=== PATIENT | male | born 1960 | race Caucasian/White ===

== ENCOUNTER 2016-07-18 13:02 | Inpatient (IN) | payer MEDICARE, MEDICAID ==
[2016-07-18] VITALS (8 sets, daily range): BP systolic 122–147; BP diastolic 61–70
[~2016-07-18] VITALS: Ht 160 cm; Wt 87.5 kg
[~2016-07-18 13:02] MED LIST: ACET-868 PO; ASPI81TA2 PO; BISA10SU8 RC; BLOO-668 IN; CARV3.122 PO; DIVA250T4 PO; DOCU-270 PO; DOCU250C75 PO; ENZY1TAB5 PO; FOLI1TAB16 PO; INSU100V11 SQ; INSU300I SQ; LEVE250T2 PO; LOSA25TA3 PO; MAGN400O6 PO; METF850T2 PO; NA P133E RC; QUET25TA PO; SENN8.6T6 PO; SIMV10TA6 PO; SPIR25TA PO
[2016-07-18 14:19] LABS: BASOPHILS % (AUTO) 0.5 % (0.0-2.0); DIFF TOTAL % 100 %; EOSINOPHILS # (AUTO) 0.9 /CMM (0.0-0.7); EOSINOPHILS % (AUTO) 10.8 % (0.0-6.0); HEMATOCRIT 25 % (39-51); HEMOGLOBIN 7.3 g/dL (13.5-17.5); LYMPHOCYTES # (AUTO) 1.5 /CMM (0.8-4.8); LYMPHOCYTES % (AUTO) 17.7 % (20.0-44.0); MEAN CORPUSCULAR HEMOGLOBIN 17 PG (26.0-33.0); MEAN CORPUSCULAR HGB CONC 29 g/dl (31.0-36.0); MEAN CORPUSCULAR VOLUME 58 fL (80-96); MONOCYTES # (AUTO) 0.7 /CMM (0.1-1.30); MONOCYTES % (AUTO) 8.1 % (2.0-12.0); NEUTROPHILS # (AUTO) 5.4 /CMM (1.8-8.9); NEUTROPHILS % (AUTO) 62.9 % (43.0-81.0); PLATELET COUNT (AUTO) 251 /CMM (150-450); RED BLOOD CELL COUNT(AUTO) 4.32 MIL/uL (4.5-6.0); WHITE BLOOD COUNT (AUTO) 8.6 K/uL (4.3-11.0)
[2016-07-18 14:25] LABS: INR 1.07 (0.87-1.13); PROTHROMBIN TIME 11.2 SECS (9.5-12.7)
[2016-07-18 14:28] LABS: ALBUMIN 3.6 g/dL (3.4-5.0); BILIRUBIN,DIRECT 0.1 mg/dL (0.0-0.2); BILIRUBIN,TOTAL 0.5 mg/dL (0.2-1.0); CALCIUM, SERUM 8.4 mg/dL (8.5-10.1); CREATININE 1.1 mg/dL (0.6-1.3); INDIRECT BILIRUBIN 0.4 mg/dL (0.0-1.1); POTASSIUM 4.7 mmol/L (3.5-5.1); TOTAL PROTEIN, SERUM 7.1 g/dL (6.4-8.2)
[2016-07-18] MEDS ORDERED: INSULIN REGULAR, HUMAN 100 UNIT/ML 10 ML VIAL ONE (14:55)
[2016-07-18] MEDS ORDERED: INSULIN REGULAR, HUMAN 100 UNIT/ML 10 ML VIAL SQ ONE (15:00)
[2016-07-18 15:20] LABS: LYMPHOCYTES % (MANUAL) 22 % (16-48)
[2016-07-18 15:21] LABS: EOSINOPHILS % (MANUAL) 7 % (0-4)
[2016-07-18] MEDS ORDERED: RANI150T8 PO (15:26)
[2016-07-18] MEDS ORDERED: AMYL1CAP62 PO (15:26)
[2016-07-18] MEDS ORDERED: DIVA250T PO (15:26)
[2016-07-18] MEDS ORDERED: ZOLP5TAB7 PO (15:26)
[2016-07-18] MEDS ORDERED: METF500T4 PO (15:26)
[2016-07-18] MEDS ORDERED: DIVA500T7 PO (15:26)
[2016-07-18] MEDS ORDERED: HYDR-552 PO (15:26)
[2016-07-18] MEDS ORDERED: ONDANSETRON HCL/PF 4 MG/2 ML VIAL IVP PRN (16:00)
[2016-07-18] MEDS ORDERED: MAG HYDROX/AL HYDROX/SIMETH 30 ML UDC PO PRN (16:00)
[2016-07-18] MEDS ORDERED: ZOLPIDEM TARTRATE 5 MG TABLET PO PRN (16:00)
[2016-07-18] MEDS ORDERED: MAGNESIUM HYDROXIDE 30 ML UDC PO PRN (16:00)
[2016-07-18] MEDS ORDERED: HYDROCODONE/APAP 5/325MG 1 EACH TABLET PO PRN (16:00)
[2016-07-18] MEDS ORDERED: Z GUARD REMEDY 2 OZ OINT TP PRN (16:00)
[2016-07-18] MEDS ORDERED: ACETAMINOPHEN 325 MG TABLET PO PRN (16:00)
[2016-07-18] MEDS ORDERED: BLOOD IV SET 1 EA INFUS.SET MC ONE ×2 (17:49→21:23)
[2016-07-18] MEDS ORDERED: IV NS 0.9% 250 ML IV ONE (17:49)
[2016-07-18 17:54] LABS: IRON, SERUM 20 ug/dl (50-175); PERCENT SATURATION 5 % (14-33); TOTAL IRON BINDING CAPACITY 438 ug/dl (250-450)
[2016-07-18] MEDS: AMYLASE/LIPASE/PROTEASE 1 CAP CAPSULE.DR PO SCH (20:03)
[2016-07-18] MEDS: LOSARTAN POTASSIUM 25 MG TABLET PO SCH (20:03)
[2016-07-18] MEDS ORDERED: DEXTROSE 50%-WATER 50 ML DISP.SYRIN IV PRN (20:30)
[2016-07-18] MEDS ORDERED: FUROSEMIDE 20 MG/2 ML VIAL IV ONE (21:00)
[2016-07-18] MEDS: QUETIAPINE FUMARATE 25 MG TABLET PO SCH (21:07)
[2016-07-18] MEDS: DIVALPROEX SODIUM 500 MG TABLET.DR PO SCH (21:07)
[2016-07-18] MEDS: SIMVASTATIN 10 MG TABLET PO SCH (21:07)
[2016-07-18] MEDS: LEVETIRACETAM (250 MG) 250 MG TABLET PO SCH (21:07)
[2016-07-18] MEDS: CARVEDILOL 3.125 MG TABLET PO SCH (21:08)
[2016-07-18] MEDS: BLOOD SUGAR DIAGNOSTIC 1 EACH STRIP VI SCH (21:08)
[2016-07-18] MEDS: *INSULIN REGULAR(HUMULIN R)HUM 100 UNIT/ML VIAL SQ PRN (21:09)
[2016-07-18] MEDS ORDERED: IV SET PRIMARY PUMP SET 1 EA INFUS.SET MC ONE (23:57)
[2016-07-19 00:08] VITALS: BP 139/74
[2016-07-19] MEDS ORDERED: FUROSEMIDE 20 MG/2 ML VIAL ONE (00:11)
[2016-07-19] MEDS: IV NS 0.9% 1,000 ML IV PRN (00:15)
[2016-07-19] MEDS: *INSULIN REGULAR(HUMULIN R)HUM 100 UNIT/ML VIAL SQ PRN ×2 (06:35→21:27)
[2016-07-19] MEDS: BLOOD SUGAR DIAGNOSTIC 1 EACH STRIP VI SCH ×4 (06:35→21:24)
[2016-07-19 07:23] LABS: CALCIUM, SERUM 8.2 mg/dL (8.5-10.1); PHOSPHORUS 3.4 mg/dL (2.5-4.9); POTASSIUM 4.3 mmol/L (3.5-5.1)
[2016-07-19 07:38] LABS: BASOPHILS # (AUTO) 0.1 /CMM (0.0-0.2); BASOPHILS % (AUTO) 0.6 % (0.0-2.0); DIFF TOTAL % 100 %; EOSINOPHILS # (AUTO) 1.1 /CMM (0.0-0.7); EOSINOPHILS % (AUTO) 12.5 % (0.0-6.0); HEMATOCRIT 30 % (39-51); LYMPHOCYTES # (AUTO) 1.5 /CMM (0.8-4.8); LYMPHOCYTES % (AUTO) 16.1 % (20.0-44.0); MEAN CORPUSCULAR HEMOGLOBIN 19 PG (26.0-33.0); MEAN CORPUSCULAR HGB CONC 30 g/dl (31.0-36.0); MEAN CORPUSCULAR VOLUME 62 fL (80-96); MONOCYTES # (AUTO) 0.7 /CMM (0.1-1.30); MONOCYTES % (AUTO) 7.9 % (2.0-12.0); NEUTROPHILS # (AUTO) 5.8 /CMM (1.8-8.9); NEUTROPHILS % (AUTO) 62.9 % (43.0-81.0); PLATELET COUNT (AUTO) 192 /CMM (150-450); RED BLOOD CELL COUNT(AUTO) 4.78 MIL/uL (4.5-6.0); WHITE BLOOD COUNT (AUTO) 9.2 K/uL (4.3-11.0)
[2016-07-19 08:00] VITALS: BP 116/61
[2016-07-19] MEDS: FOLIC ACID 1 MG TABLET PO SCH (08:11)
[2016-07-19] MEDS: CARVEDILOL 3.125 MG TABLET PO SCH ×2 (08:11→21:00)
[2016-07-19] MEDS: AMYLASE/LIPASE/PROTEASE 1 CAP CAPSULE.DR PO SCH ×3 (08:11→17:12)
[2016-07-19] MEDS: DIVALPROEX SODIUM 250 MG TABLET.DR PO SCH (08:12)
[2016-07-19] MEDS: LEVETIRACETAM (250 MG) 250 MG TABLET PO SCH ×2 (08:12→21:21)
[2016-07-19] MEDS: PANTOPRAZOLE 40 MG TABLET.DR PO SCH (08:12)
[2016-07-19] MEDS: LOSARTAN POTASSIUM 25 MG TABLET PO SCH ×2 (08:12→17:12)
[2016-07-19] MEDS: SPIRONOLACTONE 25 MG TABLET PO SCH (08:12)
[2016-07-19] MEDS ORDERED: SECONDARY IV SET 1 EA INFUS.SET MC ONE ×2 (11:10→14:34)
[2016-07-19] MEDS: Magnesium 1GM/D5W 100ML PREMIX 100 ML IV SCH ×2 (11:25→12:53)
[2016-07-19 12:04] LABS: URIC ACID 8.5 mg/dL (2.6-7.2)
[2016-07-19 12:45] LABS: ANISOCYTOSIS 3+; EOSINOPHILS % (MANUAL) 12 % (0-4); HYPOCHROMASIA 2+; LYMPHOCYTES % (MANUAL) 18 % (16-48); MICROCYTOSIS 2+; OVALOCYTES 1+; PLATELET ESTIMATE ADEQUATE
[2016-07-19] MEDS: INSULIN REGULAR, HUMAN 100 UNIT/ML 3 ML VIAL SQ PRN ×2 (13:03→17:14)
[2016-07-19] MEDS: DIVALPROEX SODIUM 125 MG TABLET.DR PO SCH (13:16)
[2016-07-19 14:46] LABS: KETONES,URINE NEGATIVE (NEGATIVE); LEUKOCYTE ESTERASE ,URINE NEGATIVE (NEGATIVE)
[2016-07-19 15:13] LABS: ADD UA MICROSCOPIC YES
[2016-07-19] MEDS: SOD FERRIC GLUC 125 MG in IV NS 0.9% 100 ML IV SCH (15:21)
[2016-07-19 16:00] VITALS: BP 116/43
[2016-07-19 16:54] LABS: ADD URINE CULTURE NO; RBC,URINE 0-2 /HPF (0-2); WBC,URINE 0-2 /HPF (0-3)
[2016-07-19 19:33] VITALS: BP 118/56
[2016-07-19 19:43] VITALS: BP 118/56
[2016-07-19] MEDS: SIMVASTATIN 10 MG TABLET PO SCH (21:21)
[2016-07-19] MEDS: QUETIAPINE FUMARATE 25 MG TABLET PO SCH (21:21)
[2016-07-19] MEDS: DIVALPROEX SODIUM 500 MG TABLET.DR PO SCH (21:21)
[2016-07-20 06:34] LABS: BASOPHILS % (AUTO) 0.5 % (0.0-2.0); DIFF TOTAL % 100 %; EOSINOPHILS # (AUTO) 1.3 /CMM (0.0-0.7); EOSINOPHILS % (AUTO) 13.6 % (0.0-6.0); HEMATOCRIT 32 % (39-51); HEMOGLOBIN 9.8 g/dL (13.5-17.5); LYMPHOCYTES # (AUTO) 1.8 /CMM (0.8-4.8); LYMPHOCYTES % (AUTO) 18.9 % (20.0-44.0); MEAN CORPUSCULAR HEMOGLOBIN 19 PG (26.0-33.0); MEAN CORPUSCULAR HGB CONC 30 g/dl (31.0-36.0); MEAN CORPUSCULAR VOLUME 63 fL (80-96); MONOCYTES # (AUTO) 0.9 /CMM (0.1-1.30); MONOCYTES % (AUTO) 9.3 % (2.0-12.0); NEUTROPHILS # (AUTO) 5.6 /CMM (1.8-8.9); NEUTROPHILS % (AUTO) 57.7 % (43.0-81.0); PLATELET COUNT (AUTO) 237 /CMM (150-450); RED BLOOD CELL COUNT(AUTO) 5.17 MIL/uL (4.5-6.0); WHITE BLOOD COUNT (AUTO) 9.7 K/uL (4.3-11.0)
[2016-07-20] MEDS: BLOOD SUGAR DIAGNOSTIC 1 EACH STRIP VI SCH ×4 (06:44→21:57)
[2016-07-20] MEDS: INSULIN REGULAR, HUMAN 100 UNIT/ML 3 ML VIAL SQ PRN ×3 (06:45→17:57)
[2016-07-20 07:07] LABS: CALCIUM, SERUM 8.4 mg/dL (8.5-10.1); POTASSIUM 4.7 mmol/L (3.5-5.1)
[2016-07-20 07:11] LABS: VIT D, 25-HYDROXY 55.1 ng/mL (30.0-100.0)
[2016-07-20 07:28] VITALS: BP 109/48
[2016-07-20 08:00] VITALS: BP 109/48
[2016-07-20] MEDS: PANTOPRAZOLE 40 MG TABLET.DR PO SCH (08:24)
[2016-07-20] MEDS: LEVETIRACETAM (250 MG) 250 MG TABLET PO SCH ×2 (08:24→21:15)
[2016-07-20] MEDS: SPIRONOLACTONE 25 MG TABLET PO SCH (08:24)
[2016-07-20] MEDS: FOLIC ACID 1 MG TABLET PO SCH (08:24)
[2016-07-20] MEDS: DIVALPROEX SODIUM 250 MG TABLET.DR PO SCH (08:25)
[2016-07-20] MEDS: AMYLASE/LIPASE/PROTEASE 1 CAP CAPSULE.DR PO SCH ×3 (08:25→17:00)
[2016-07-20] MEDS: LOSARTAN POTASSIUM 25 MG TABLET PO SCH ×2 (09:00→17:00)
[2016-07-20] MEDS: CARVEDILOL 3.125 MG TABLET PO SCH ×2 (09:00→21:15)
[2016-07-20 10:21] LABS: *SPE ALBUMIN 3.6 g/dL (2.9-4.4)
[2016-07-20 10:50] LABS: ANISOCYTOSIS 2+; EOSINOPHILS % (MANUAL) 14 % (0-4); HYPOCHROMASIA 1+; LYMPHOCYTES % (MANUAL) 23 % (16-48); MICROCYTOSIS 2+; PLATELET ESTIMATE ADEQUATE; POLYCHROMASIA 1+
[2016-07-20 10:51] LABS: OVALOCYTES 1+
[2016-07-20] MEDS: DIVALPROEX SODIUM 125 MG TABLET.DR PO SCH (12:41)
[2016-07-20 16:00] VITALS: BP 123/57
[2016-07-20] MEDS: SOD FERRIC GLUC 125 MG in IV NS 0.9% 100 ML IV SCH (17:43)
[2016-07-20 20:00] VITALS: BP 141/74
[2016-07-20] MEDS: SIMVASTATIN 10 MG TABLET PO SCH (21:15)
[2016-07-20] MEDS: QUETIAPINE FUMARATE 25 MG TABLET PO SCH (21:15)
[2016-07-20] MEDS: DIVALPROEX SODIUM 500 MG TABLET.DR PO SCH (21:15)
[2016-07-20] MEDS: *INSULIN REGULAR(HUMULIN R)HUM 100 UNIT/ML VIAL SQ PRN (22:01)
[2016-07-20] MEDS: IV NS 0.9% 1,000 ML IV PRN (22:04)
[2016-07-21] MEDS: PANTOPRAZOLE 40 MG TABLET.DR PO SCH ×2 (06:46→08:53)
[2016-07-21] MEDS: BLOOD SUGAR DIAGNOSTIC 1 EACH STRIP VI SCH ×4 (06:46→21:25)
[2016-07-21] MEDS: INSULIN REGULAR, HUMAN 100 UNIT/ML 3 ML VIAL SQ PRN ×3 (06:51→17:40)
[2016-07-21 07:11] LABS: CALCIUM, SERUM 8.4 mg/dL (8.5-10.1); CREATININE 1.1 mg/dL (0.6-1.3); POTASSIUM 4.3 mmol/L (3.5-5.1)
[2016-07-21] MEDS: DIVALPROEX SODIUM 250 MG TABLET.DR PO SCH (08:53)
[2016-07-21] MEDS: FOLIC ACID 1 MG TABLET PO SCH (08:54)
[2016-07-21] MEDS: LOSARTAN POTASSIUM 25 MG TABLET PO SCH ×2 (08:54→16:16)
[2016-07-21] MEDS: CARVEDILOL 3.125 MG TABLET PO SCH ×2 (08:55→21:20)
[2016-07-21] MEDS: LEVETIRACETAM (250 MG) 250 MG TABLET PO SCH ×2 (08:55→21:20)
[2016-07-21] MEDS: SPIRONOLACTONE 25 MG TABLET PO SCH (08:55)
[2016-07-21] MEDS: AMYLASE/LIPASE/PROTEASE 1 CAP CAPSULE.DR PO SCH ×3 (08:56→16:16)
[2016-07-21] MEDS: DIVALPROEX SODIUM 125 MG TABLET.DR PO SCH (12:13)
[2016-07-21] MEDS ORDERED: SECONDARY IV SET 1 EA INFUS.SET MC ONE (16:13)
[2016-07-21] MEDS: SOD FERRIC GLUC 125 MG in IV NS 0.9% 100 ML IV SCH (16:16)
[2016-07-21] MEDS ORDERED: PEG 3350/NA SULF,BICARB,CL/KCL 4,000 ML BOTTLE PO ONE (18:00)
[2016-07-21 20:00] VITALS: BP 124/41
[2016-07-21] MEDS: DIVALPROEX SODIUM 500 MG TABLET.DR PO SCH (21:19)
[2016-07-21] MEDS: QUETIAPINE FUMARATE 25 MG TABLET PO SCH (21:20)
[2016-07-21] MEDS: SIMVASTATIN 10 MG TABLET PO SCH (21:20)
[2016-07-21] MEDS: *INSULIN REGULAR(HUMULIN R)HUM 100 UNIT/ML VIAL SQ PRN (21:28)
[2016-07-21 22:00] VITALS: BP 124/41
[2016-07-21] MEDS ORDERED: IV SET PRIMARY PUMP SET 1 EA INFUS.SET MC ONE (23:32)
[2016-07-22] MEDS ORDERED: IV D5/0.45 NACL 1,000 ML IV ONE
[2016-07-22] MEDS: BLOOD SUGAR DIAGNOSTIC 1 EACH STRIP VI SCH ×2 (07:00→12:07)
[2016-07-22 07:08] LABS: CALCIUM, SERUM 8.3 mg/dL (8.5-10.1); CREATININE 1.2 mg/dL (0.6-1.3); POTASSIUM 4.1 mmol/L (3.5-5.1)
[2016-07-22 08:00] VITALS: BP_SYST 106; BP_SYST 92; BP_DIAS 48; BP_DIAS 55
[2016-07-22] MEDS: LOSARTAN POTASSIUM 25 MG TABLET PO SCH (08:32)
[2016-07-22] MEDS: SPIRONOLACTONE 25 MG TABLET PO SCH (08:32)
[2016-07-22] MEDS: CARVEDILOL 3.125 MG TABLET PO SCH (08:32)
[2016-07-22] MEDS: LEVETIRACETAM (250 MG) 250 MG TABLET PO SCH (08:33)
[2016-07-22] MEDS: FOLIC ACID 1 MG TABLET PO SCH (08:33)
[2016-07-22] MEDS: AMYLASE/LIPASE/PROTEASE 1 CAP CAPSULE.DR PO SCH ×2 (08:33→12:07)
[2016-07-22] MEDS: DIVALPROEX SODIUM 250 MG TABLET.DR PO SCH (08:33)
[2016-07-22] MEDS: DIVALPROEX SODIUM 125 MG TABLET.DR PO SCH (12:07)
[2016-07-22] MEDS ORDERED: [UNRECOGNIZED DRUG - CODE] IV (12:08)
[2016-07-22] MEDS: INSULIN REGULAR, HUMAN 100 UNIT/ML 3 ML VIAL SQ PRN (13:38)
[2016-07-22] MEDS: SOD FERRIC GLUC 125 MG in IV NS 0.9% 100 ML IV SCH (14:00)
[2016-07-22 16:00] VITALS: BP 110/45
== END 2016-07-22 17:13 | DRG 378 ==
LOC: ER 13:05 → MEDSG2 16:06
PROVIDERS: ADMIT Internal Medicine; ATTEND Internal Medicine
PROC: 30233N1 Transfusion of Nonautologous Red Blood Cells into Peripheral Vein, Percutaneous Approach (ICD-10-PCS; principal; 2016-07-18)
PROC: 0DJ08ZZ Inspection of Upper Intestinal Tract, Via Natural or Artificial Opening Endoscopic (ICD-10-PCS; 2016-07-22)
DX: K92.2 Gastrointestinal hemorrhage, unspecified (principal); E44.0 Moderate protein-calorie malnutrition; D50.9 Iron deficiency anemia, unspecified; E78.5 Hyperlipidemia, unspecified; G40.909 Epilepsy, unspecified, not intractable, without status epilepticus; E11.40 Type 2 diabetes mellitus with diabetic neuropathy, unspecified; K74.60 Unspecified cirrhosis of liver; I10 Essential (primary) hypertension; I25.10 Atherosclerotic heart disease of native coronary artery without angina pectoris; D63.8 Anemia in other chronic diseases classified elsewhere; E66.9 Obesity, unspecified; M10.9 Gout, unspecified; Z96.649 Presence of unspecified artificial hip joint; E11.65 Type 2 diabetes mellitus with hyperglycemia; T14.8 Other injury of unspecified body region; X58.XXXA Exposure to other specified factors, initial encounter; Y93.9 Activity, unspecified; Y92.89 Other specified places as the place of occurrence of the external cause; Y99.9 Unspecified external cause status; Z68.34 Body mass index [BMI] 34.0-34.9, adult; F99 Mental disorder, not otherwise specified; F43.22 Adjustment disorder with anxiety; Z79.4 Long term (current) use of insulin; F10.10 Alcohol abuse, uncomplicated
CPT/HCPCS: 36415; 71010-TC; 80048-TC; 80061-TC; 80076-TC; 81000-TC; 82306; 82378; 82728-TC; 82746; 82962-TC; 83010; 83540-TC; 83615-TC; 83735-TC; 84100-TC; 84153-TC; 84155; 84165; 84550-TC; 85025-TC; 85045-TC; 85730-TC; 86850-TC; 86901; 86921-TC; 87081-TC; 93307-TC; A4606; J1815; J1940; J2916; J3475; J3490; J7030; J7050; P9016-BL; Z7610

== ENCOUNTER 2016-10-02 18:53 | Emergency (ER) | payer MEDICARE, MEDICAID ==
[~2016-10-02] VITALS: Ht 180.3 cm; Wt 113.4 kg
[~2016-10-02 18:53] MED LIST changes: +AMYL1CAP62 PO; -ASPI81TA2 PO; -BISA10SU8 RC; -BLOO-668 IN; +DIVA250T PO; +DIVA500T7 PO; -DOCU-270 PO; -DOCU250C75 PO; -ENZY1TAB5 PO; +HYDR-552 PO; -INSU100V11 SQ; -MAGN400O6 PO; +METF500T4 PO; -METF850T2 PO; -NA P133E RC; +RANI150T8 PO; -SENN8.6T6 PO; +ZOLP5TAB7 PO; +[UNRECOGNIZED DRUG - CODE] IV
[2016-10-02 19:07] VITALS: BP 106/77
--- NOTE | 2016-10-02 20:03 | NUR ---
CALLED [facility] FOR TRANSPORT ETA 30 MINUTES
== END 2016-10-02 20:43 ==
LOC: ER 18:55
DX: B02.9 Zoster without complications (principal); G93.40 Encephalopathy, unspecified; E11.9 Type 2 diabetes mellitus without complications; I10 Essential (primary) hypertension; Z79.4 Long term (current) use of insulin; K74.60 Unspecified cirrhosis of liver; I42.9 Cardiomyopathy, unspecified; F10.20 Alcohol dependence, uncomplicated; F17.210 Nicotine dependence, cigarettes, uncomplicated; F25.9 Schizoaffective disorder, unspecified
CPT/HCPCS: 99283; A4606; Z7610

== ENCOUNTER 2017-05-31 12:53 | Inpatient (IN) | payer MEDICARE, MEDICAID ==
[~2017-05-31] VITALS: Ht 167.6 cm; Wt 68.0 kg
[2017-05-31 13:53] LABS: BASOPHILS # (AUTO) 0.2 /CMM (0.0-0.2); BASOPHILS % (AUTO) 2.4 % (0.0-2.0); EOSINOPHILS % (AUTO) 11.5 % (0.0-6.0); HEMATOCRIT 46 % (39-51); HEMOGLOBIN 14.7 g/dL (13.5-17.5); LYMPHOCYTES # (AUTO) 1.6 /CMM (0.8-4.8); LYMPHOCYTES % (AUTO) 18.7 % (20.0-44.0); MEAN CORPUSCULAR HEMOGLOBIN 26 PG (26.0-33.0); MEAN CORPUSCULAR HGB CONC 32 g/dl (31.0-36.0); MEAN CORPUSCULAR VOLUME 81 fL (80-96); MONOCYTES # (AUTO) 0.6 /CMM (0.1-1.30); MONOCYTES % (AUTO) 6.6 % (2.0-12.0); NEUTROPHILS % (AUTO) 60.8 % (43.0-81.0); PLATELET COUNT (AUTO) 140 /CMM (150-450); RDW COEFFICIENT OF VARIATION 17.3 (11.5-15.0); RED BLOOD CELL COUNT(AUTO) 5.64 MIL/uL (4.5-6.0); WHITE BLOOD COUNT (AUTO) 8.4 K/uL (4.3-11.0)
[2017-05-31] MEDS ORDERED: IV NS 0.9% 1,000 ML BAG IV ONE ×2 (14:00→15:00)
[2017-05-31 14:10] LABS: ALANINE AMINOTRANSFERASE 18 U/L (12-78); ALBUMIN 3.6 g/dL (3.4-5.0); ALKALINE PHOSPHATASE 80 U/L (46-116); ASPARTATE AMINOTRANSFERASE 11 U/L (15-37); BILIRUBIN,DIRECT 0.1 mg/dL (0.0-0.2); BILIRUBIN,TOTAL 0.3 mg/dL (0.2-1.0); CALCIUM, SERUM 9.5 mg/dL (8.5-10.1); CARBON DIOXIDE 25 mmol/L (21-32); CHLORIDE 92 mmol/L (98-107); CREATININE 1.4 mg/dL (0.6-1.3); POTASSIUM 4.4 mmol/L (3.5-5.1); SODIUM SERUM 129 mmol/L (136-145); TOTAL PROTEIN, SERUM 7.5 g/dL (6.4-8.2); UREA NITROGEN, BLOOD 21 mg/dL (7-18)
[2017-05-31 14:11] LABS: GLUCOSE 695 mg/dL (74-106); TROPONIN I < 0.017 ng/mL (0.00-0.056)
[2017-05-31] MEDS ORDERED: INSULIN ASPART HUMALOG/NOVOLOG 100 UNIT/ML CARTRIDGE SQ STA (14:28)
[2017-05-31 16:21] LABS: APPEARANCE,URINE Clear (CLEAR); BILIRUBIN,URINE Negative (NEGATIVE); BLOOD, URINE Negative Ery/uL (NEGATIVE); COLOR,URINE Yellow (YELLOW); KETONES,URINE 15 (NEGATIVE); LEUKOCYTE ESTERASE ,URINE Negative (NEGATIVE); NITRITE, URINE Negative (NEGATIVE); PROTEIN,URINE Negative (NEGATIVE); UGLUCOSE 500 MG/DL mg/dL (NEGATIVE); UROBILINOGEN,URINE 0.2 EU/dL (0.2)
[2017-05-31] MEDS ORDERED: QUET25TA PO (16:30)
[2017-05-31] MEDS ORDERED: DIVA125T3 PO ×2 (16:30)
[2017-05-31] MEDS ORDERED: ATOR10TA PO (16:30)
[2017-05-31] MEDS ORDERED: DIVA500T54 PO (16:30)
[2017-05-31] MEDS ORDERED: INSU100I4 SQ (16:30)
[2017-05-31 16:31] LABS: BACTERIA,URINE None seen /HPF (None Seen); RBC,URINE 0-3 /HPF (0-2); SQUAMOUS EPITHELIAL CELL,UR Few /HPF (None Seen); WBC,URINE 0-3 /HPF (0-3)
[2017-05-31] MEDS ORDERED: IVERMECTIN 3 MG TABLET PO ONE ×2 (17:00→17:30)
[2017-05-31] MEDS ORDERED: diphenhydrAMINE HCL 25 MG CAPSULE ONE (17:27)
[2017-05-31] MEDS ORDERED: diphenhydrAMINE HCL 25 MG CAPSULE PO ONE (17:30)
[2017-05-31 20:00] VITALS: BP 114/55
[2017-05-31] MEDS ORDERED: CLONIDINE HCL 0.1 MG TABLET PO PRN (20:00)
[2017-05-31] MEDS ORDERED: DEXTROSE 50%-WATER 50 ML DISP.SYRIN IV PRN (20:00)
[2017-05-31] MEDS ORDERED: ONDANSETRON HCL/PF 4 MG/2 ML VIAL IV PRN (20:00)
[2017-05-31] MEDS ORDERED: ACETAMINOPHEN 325 MG TABLET PO PRN (20:00)
[2017-05-31] MEDS: BLOOD SUGAR DIAGNOSTIC 1 EACH STRIP IN SCH (21:18)
[2017-05-31] MEDS: ENOXAPARIN SODIUM 40 MG/0.4 ML DISP.SYRIN SQ SCH (21:24)
[2017-05-31] MEDS: *INSULIN REGULAR(HUMULIN R)HUM 100 UNIT/ML VIAL SQ PRN (21:28)
[2017-06-01] MEDS: BLOOD SUGAR DIAGNOSTIC 1 EACH STRIP IN SCH ×4 (06:09→21:54)
[2017-06-01] MEDS: INSULIN REGULAR, HUMAN 100 UNIT/ML 3 ML VIAL SQ PRN ×4 (06:16→21:59)
[2017-06-01 07:40] LABS: BASOPHILS % (AUTO) 0.6 % (0.0-2.0); EOSINOPHILS # (AUTO) 0.8 /CMM (0.0-0.7); EOSINOPHILS % (AUTO) 13.1 % (0.0-6.0); HEMATOCRIT 41 % (39-51); HEMOGLOBIN 13.3 g/dL (13.5-17.5); LYMPHOCYTES # (AUTO) 1.5 /CMM (0.8-4.8); LYMPHOCYTES % (AUTO) 23.3 % (20.0-44.0); MEAN CORPUSCULAR HEMOGLOBIN 26 PG (26.0-33.0); MEAN CORPUSCULAR HGB CONC 33 g/dl (31.0-36.0); MEAN CORPUSCULAR VOLUME 79 fL (80-96); MONOCYTES # (AUTO) 0.4 /CMM (0.1-1.30); MONOCYTES % (AUTO) 6.5 % (2.0-12.0); NEUTROPHILS # (AUTO) 3.6 /CMM (1.8-8.9); NEUTROPHILS % (AUTO) 56.5 % (43.0-81.0); PLATELET COUNT (AUTO) 139 /CMM (150-450); RDW COEFFICIENT OF VARIATION 18.8 (11.5-15.0); RED BLOOD CELL COUNT(AUTO) 5.14 MIL/uL (4.5-6.0); WHITE BLOOD COUNT (AUTO) 6.4 K/uL (4.3-11.0)
[2017-06-01 08:00] VITALS: BP 113/64
[2017-06-01] MEDS: PANTOPRAZOLE 40 MG TABLET.DR PO SCH (08:00)
[2017-06-01] MEDS: IV NS 0.9% 1,000 ML IV PRN ×2 (08:05→17:50)
[2017-06-01 08:27] LABS: CREATININE 0.9 mg/dL (0.6-1.3); POTASSIUM 3.8 mmol/L (3.5-5.1)
[2017-06-01] MEDS ORDERED: PERMETHRIN 5% CRM 60 GM TUBE TP ONE (12:30)
[2017-06-01] MEDS ORDERED: IVERMECTIN 3 MG TABLET PO ONE (12:30)
[2017-06-01 16:21] VITALS: BP 118/69
[2017-06-01 20:00] VITALS: BP 137/77
[2017-06-01] MEDS: ENOXAPARIN SODIUM 40 MG/0.4 ML DISP.SYRIN SQ SCH (21:04)
[2017-06-02] MEDS: IV NS 0.9% 1,000 ML IV PRN ×2 (03:51→15:11)
[2017-06-02 04:22] VITALS: BP 137/77
[2017-06-02] MEDS: BLOOD SUGAR DIAGNOSTIC 1 EACH STRIP IN SCH ×4 (06:01→21:54)
[2017-06-02] MEDS: *INSULIN REGULAR(HUMULIN R)HUM 100 UNIT/ML VIAL SQ PRN ×2 (06:08→22:48)
[2017-06-02] MEDS: PANTOPRAZOLE 40 MG TABLET.DR PO SCH (07:45)
[2017-06-02 08:00] VITALS: BP 127/72
[2017-06-02] MEDS: CARVEDILOL 3.125 MG TABLET PO SCH ×2 (09:00→21:43)
[2017-06-02] MEDS: METFORMIN 500 MG TABLET PO SCH ×3 (09:40→16:56)
[2017-06-02] MEDS: QUETIAPINE FUMARATE 25 MG TABLET PO SCH ×2 (09:40→21:45)
[2017-06-02] MEDS: DIVALPROEX SODIUM 125 MG TABLET.DR PO SCH (09:40)
[2017-06-02] MEDS: LOSARTAN POTASSIUM 25 MG TABLET PO SCH ×2 (09:41→16:56)
[2017-06-02] MEDS: LEVETIRACETAM (250 MG) 250 MG TABLET PO SCH ×2 (09:41→21:43)
[2017-06-02] MEDS: INSULIN REGULAR, HUMAN 100 UNIT/ML 3 ML VIAL SQ PRN ×2 (11:57→16:59)
[2017-06-02] MEDS: LIPASE/PROTEASE/AMYLASE 1 EACH CAPSULE.DR PO SCH ×2 (12:00→17:00)
[2017-06-02 16:00] VITALS: BP 118/66
[2017-06-02 20:00] VITALS: BP 123/66
[2017-06-02] MEDS: ENOXAPARIN SODIUM 40 MG/0.4 ML DISP.SYRIN SQ SCH (21:44)
[2017-06-02] MEDS: ZOLPIDEM TARTRATE 5 MG TABLET PO SCH (21:44)
[2017-06-02] MEDS: ATORVASTATIN 10 MG TABLET PO SCH (21:45)
[2017-06-02] MEDS: FAMOTIDINE (20 MG) 20 MG TABLET PO SCH (21:45)
[2017-06-02] MEDS: DIVALPROEX SODIUM 500 MG TABLET.DR PO SCH (21:45)
[2017-06-02] MEDS ORDERED: DIVALPROEX SODIUM 125 MG TABLET.DR PO SCH ×2 (22:00)
[2017-06-03] MEDS: IV NS 0.9% 1,000 ML IV PRN (01:07)
[2017-06-03] MEDS: BLOOD SUGAR DIAGNOSTIC 1 EACH STRIP IN SCH ×4 (06:22→21:29)
[2017-06-03] MEDS: INSULIN REGULAR, HUMAN 100 UNIT/ML 3 ML VIAL SQ PRN ×3 (06:24→16:57)
[2017-06-03 08:00] VITALS: BP 143/71
[2017-06-03] MEDS: QUETIAPINE FUMARATE 25 MG TABLET PO SCH ×2 (08:43→21:24)
[2017-06-03] MEDS: METFORMIN 500 MG TABLET PO SCH ×3 (08:43→16:45)
[2017-06-03] MEDS: CARVEDILOL 3.125 MG TABLET PO SCH ×2 (08:44→20:09)
[2017-06-03] MEDS: LOSARTAN POTASSIUM 25 MG TABLET PO SCH ×2 (08:44→16:55)
[2017-06-03] MEDS: DIVALPROEX SODIUM 125 MG TABLET.DR PO SCH (08:44)
[2017-06-03] MEDS: LIPASE/PROTEASE/AMYLASE 1 EACH CAPSULE.DR PO SCH ×3 (08:49→17:00)
[2017-06-03] MEDS: LEVETIRACETAM (250 MG) 250 MG TABLET PO SCH ×2 (08:50→20:09)
[2017-06-03] MEDS: PANTOPRAZOLE 40 MG TABLET.DR PO SCH (09:03)
[2017-06-03 16:00] VITALS: BP 117/58
[2017-06-03 20:00] VITALS: BP 121/71
[2017-06-03] MEDS: ENOXAPARIN SODIUM 40 MG/0.4 ML DISP.SYRIN SQ SCH (20:09)
[2017-06-03] MEDS: ATORVASTATIN 10 MG TABLET PO SCH (21:24)
[2017-06-03] MEDS: DIVALPROEX SODIUM 500 MG TABLET.DR PO SCH (21:24)
[2017-06-03] MEDS: ZOLPIDEM TARTRATE 5 MG TABLET PO SCH (21:24)
[2017-06-03] MEDS: FAMOTIDINE (20 MG) 20 MG TABLET PO SCH (21:24)
[2017-06-03] MEDS: *INSULIN REGULAR(HUMULIN R)HUM 100 UNIT/ML VIAL SQ PRN (22:06)
[2017-06-04] MEDS: BLOOD SUGAR DIAGNOSTIC 1 EACH STRIP IN SCH ×4 (07:01→21:39)
[2017-06-04] MEDS: INSULIN REGULAR, HUMAN 100 UNIT/ML 3 ML VIAL SQ PRN ×3 (07:03→18:09)
[2017-06-04 08:00] VITALS: BP 110/69
[2017-06-04] MEDS: METFORMIN 500 MG TABLET PO SCH ×3 (08:26→17:16)
[2017-06-04] MEDS: PANTOPRAZOLE 40 MG TABLET.DR PO SCH (08:26)
[2017-06-04] MEDS: LEVETIRACETAM (250 MG) 250 MG TABLET PO SCH ×2 (08:26→20:52)
[2017-06-04] MEDS: DIVALPROEX SODIUM 125 MG TABLET.DR PO SCH (08:27)
[2017-06-04] MEDS: CARVEDILOL 3.125 MG TABLET PO SCH ×2 (08:27→20:36)
[2017-06-04] MEDS: LOSARTAN POTASSIUM 25 MG TABLET PO SCH ×2 (08:27→17:17)
[2017-06-04] MEDS: QUETIAPINE FUMARATE 25 MG TABLET PO SCH ×2 (08:30→21:25)
[2017-06-04] MEDS: LIPASE/PROTEASE/AMYLASE 1 EACH CAPSULE.DR PO SCH ×3 (08:34→18:01)
[2017-06-04 16:00] VITALS: BP 114/70
[2017-06-04 19:58] VITALS: BP 124/72
[2017-06-04 20:00] VITALS: BP 124/72
[2017-06-04] MEDS: ENOXAPARIN SODIUM 40 MG/0.4 ML DISP.SYRIN SQ SCH (20:54)
[2017-06-04] MEDS: DIVALPROEX SODIUM 500 MG TABLET.DR PO SCH (21:25)
[2017-06-04] MEDS: ZOLPIDEM TARTRATE 5 MG TABLET PO SCH (21:25)
[2017-06-04] MEDS: ATORVASTATIN 10 MG TABLET PO SCH (21:25)
[2017-06-04] MEDS: FAMOTIDINE (20 MG) 20 MG TABLET PO SCH (21:25)
[2017-06-04] MEDS: *INSULIN REGULAR(HUMULIN R)HUM 100 UNIT/ML VIAL SQ PRN (21:41)
[2017-06-05] MEDS: BLOOD SUGAR DIAGNOSTIC 1 EACH STRIP IN SCH ×4 (06:09→21:40)
[2017-06-05] MEDS: INSULIN REGULAR, HUMAN 100 UNIT/ML 3 ML VIAL SQ PRN ×3 (06:28→17:44)
[2017-06-05 08:00] VITALS: BP 102/57
[2017-06-05] MEDS: PANTOPRAZOLE 40 MG TABLET.DR PO SCH (08:43)
[2017-06-05] MEDS: METFORMIN 500 MG TABLET PO SCH ×3 (08:44→17:39)
[2017-06-05] MEDS: DIVALPROEX SODIUM 125 MG TABLET.DR PO SCH (08:44)
[2017-06-05] MEDS: LOSARTAN POTASSIUM 25 MG TABLET PO SCH ×2 (08:44→17:41)
[2017-06-05] MEDS: QUETIAPINE FUMARATE 25 MG TABLET PO SCH ×2 (08:44→21:42)
[2017-06-05] MEDS: LIPASE/PROTEASE/AMYLASE 1 EACH CAPSULE.DR PO SCH ×3 (08:49→17:43)
[2017-06-05] MEDS: LEVETIRACETAM (250 MG) 250 MG TABLET PO SCH ×2 (08:50→21:42)
[2017-06-05] MEDS: CARVEDILOL 3.125 MG TABLET PO SCH ×2 (08:50→21:42)
[2017-06-05] MEDS ORDERED: IVERMECTIN 3 MG TABLET PO ONE (10:00)
[2017-06-05] MEDS ORDERED: PERMETHRIN 5% CRM 60 GM TUBE TP ONE (10:00)
[2017-06-05 16:00] VITALS: BP 121/68
[2017-06-05 21:00] VITALS: BP 149/77
[2017-06-05] MEDS: DIVALPROEX SODIUM 500 MG TABLET.DR PO SCH (21:42)
[2017-06-05] MEDS: FAMOTIDINE (20 MG) 20 MG TABLET PO SCH (21:42)
[2017-06-05] MEDS: ATORVASTATIN 10 MG TABLET PO SCH (21:42)
[2017-06-05] MEDS: ZOLPIDEM TARTRATE 5 MG TABLET PO SCH (21:43)
[2017-06-05] MEDS: ENOXAPARIN SODIUM 40 MG/0.4 ML DISP.SYRIN SQ SCH (21:50)
[2017-06-05] MEDS: *INSULIN REGULAR(HUMULIN R)HUM 100 UNIT/ML VIAL SQ PRN (21:50)
[2017-06-05 22:00] VITALS: BP 149/77
[2017-06-06] MEDS: BLOOD SUGAR DIAGNOSTIC 1 EACH STRIP IN SCH ×4 (06:11→21:24)
[2017-06-06] MEDS: INSULIN REGULAR, HUMAN 100 UNIT/ML 3 ML VIAL SQ PRN ×3 (06:15→17:59)
[2017-06-06 08:00] VITALS: BP 117/69
[2017-06-06] MEDS: DIVALPROEX SODIUM 125 MG TABLET.DR PO SCH (09:17)
[2017-06-06] MEDS: LEVETIRACETAM (250 MG) 250 MG TABLET PO SCH ×2 (09:17→21:25)
[2017-06-06] MEDS: LOSARTAN POTASSIUM 25 MG TABLET PO SCH ×2 (09:17→17:50)
[2017-06-06] MEDS: METFORMIN 500 MG TABLET PO SCH ×3 (09:17→17:48)
[2017-06-06] MEDS: QUETIAPINE FUMARATE 25 MG TABLET PO SCH ×2 (09:18→21:25)
[2017-06-06] MEDS: CARVEDILOL 3.125 MG TABLET PO SCH ×2 (09:18→21:00)
[2017-06-06] MEDS: PANTOPRAZOLE 40 MG TABLET.DR PO SCH (10:06)
[2017-06-06] MEDS: LIPASE/PROTEASE/AMYLASE 1 EACH CAPSULE.DR PO SCH ×3 (10:07→17:48)
[2017-06-06 16:00] VITALS: BP 108/52
[2017-06-06 20:00] VITALS: BP 138/70
[2017-06-06] MEDS: FAMOTIDINE (20 MG) 20 MG TABLET PO SCH (21:26)
[2017-06-06] MEDS: ATORVASTATIN 10 MG TABLET PO SCH (21:26)
[2017-06-06] MEDS: ZOLPIDEM TARTRATE 5 MG TABLET PO SCH (21:27)
[2017-06-06] MEDS: DIVALPROEX SODIUM 500 MG TABLET.DR PO SCH (21:36)
[2017-06-06] MEDS: *INSULIN REGULAR(HUMULIN R)HUM 100 UNIT/ML VIAL SQ PRN (21:39)
[2017-06-07] MEDS: BLOOD SUGAR DIAGNOSTIC 1 EACH STRIP IN SCH ×2 (06:30→11:37)
[2017-06-07] MEDS: INSULIN REGULAR, HUMAN 100 UNIT/ML 3 ML VIAL SQ PRN ×2 (06:32→11:33)
[2017-06-07] MEDS: DIVALPROEX SODIUM 125 MG TABLET.DR PO SCH (08:35)
[2017-06-07] MEDS: QUETIAPINE FUMARATE 25 MG TABLET PO SCH (08:35)
[2017-06-07] MEDS: LIPASE/PROTEASE/AMYLASE 1 EACH CAPSULE.DR PO SCH ×2 (08:35→12:52)
[2017-06-07 08:36] VITALS: BP 98/52
[2017-06-07] MEDS: LOSARTAN POTASSIUM 25 MG TABLET PO SCH (08:36)
[2017-06-07] MEDS: CARVEDILOL 3.125 MG TABLET PO SCH (08:36)
[2017-06-07] MEDS: PANTOPRAZOLE 40 MG TABLET.DR PO SCH (08:36)
[2017-06-07] MEDS: LEVETIRACETAM (250 MG) 250 MG TABLET PO SCH (08:36)
[2017-06-07] MEDS: METFORMIN 500 MG TABLET PO SCH ×2 (08:36→12:52)
[2017-06-07] MEDS ORDERED: IVERMECTIN 3 MG TABLET PO ONE (09:00)
== END 2017-06-07 14:19 | DRG 638 ==
LOC: ER 12:55 → MED 17:28
PROVIDERS: ADMIT Legal Medicine; ATTEND Legal Medicine
DX: E10.65 Type 1 diabetes mellitus with hyperglycemia (principal); I42.9 Cardiomyopathy, unspecified; I11.0 Hypertensive heart disease with heart failure; I50.9 Heart failure, unspecified; K86.1 Other chronic pancreatitis; K86.81 Exocrine pancreatic insufficiency; G40.909 Epilepsy, unspecified, not intractable, without status epilepticus; E78.5 Hyperlipidemia, unspecified; I25.10 Atherosclerotic heart disease of native coronary artery without angina pectoris; K70.9 Alcoholic liver disease, unspecified; K74.60 Unspecified cirrhosis of liver; Z79.4 Long term (current) use of insulin; Z79.84 Long term (current) use of oral hypoglycemic drugs; Z79.899 Other long term (current) drug therapy; Z96.649 Presence of unspecified artificial hip joint; L30.9 Dermatitis, unspecified; I70.0 Atherosclerosis of aorta; F03.90 Unspecified dementia, unspecified severity, without behavioral disturbance, psychotic disturbance, mood disturbance, and anxiety; Z91.19 Patient's noncompliance with other medical treatment and regimen
CPT/HCPCS: 36415; 71010-TC; 80048-TC; 80061-TC; 80076-TC; 81000-TC; 82962-TC; 84484-TC; 85025-TC; 87081-TC; A4606; J1650; J1815; J7030; Q0163; Z7610

== ENCOUNTER 2017-07-07 11:07 | Emergency (ER) | payer MEDICARE, MEDICAID ==
[~2017-07-07] VITALS: Ht 172.7 cm; Wt 87.1 kg
[~2017-07-07 11:07] MED LIST changes: +ATOR10TA PO; +DIVA125T3 PO; -DIVA250T PO; -DIVA250T4 PO; +DIVA500T54 PO; -DIVA500T7 PO; -FOLI1TAB16 PO; +INSU100I4 SQ; -SIMV10TA6 PO; -ZOLP5TAB7 PO; +ZOLP5TAB8 PO; -[UNRECOGNIZED DRUG - CODE] IV
--- NOTE | 2017-07-07 11:55 | NUR ---
PT TO ED ROOM 15. BBPA FROM [facility] VV: MIGRAINE/HEADACHE. A/A/O. VS WNL. AMBULATORY, STEADY GAIT. VS WNL. SIDE RAISL UP. HOB ELEVATED. AWAITING EVALUATION BY ER PROVIDER.
[2017-07-07] MEDS ORDERED: INSULIN REGULAR, HUMAN 100 UNIT/ML 10 ML VIAL ONE (13:27)
[2017-07-07] MEDS ORDERED: BLOOD SUGAR DIAGNOSTIC 1 EACH STRIP IN ONE (13:30)
[2017-07-07] MEDS ORDERED: INSULIN REGULAR, HUMAN 100 UNIT/ML 10 ML VIAL SQ ONE (13:30)
--- NOTE | 2017-07-07 14:58 | NUR ---
CALLED [facility] 45 MINS TRIP# [phone]
--- NOTE | 2017-07-07 15:42 | NUR ---
TRANSPORTED BACK TO SNF. STABLE CONDITION.
[2017-07-07 15:43] VITALS: BP 115/68
== END 2017-07-07 15:44 | disposition home or self-care (01) ==
LOC: ER 11:10
DX: E11.65 Type 2 diabetes mellitus with hyperglycemia (principal); G40.909 Epilepsy, unspecified, not intractable, without status epilepticus; I10 Essential (primary) hypertension; F20.9 Schizophrenia, unspecified; M10.9 Gout, unspecified; F17.200 Nicotine dependence, unspecified, uncomplicated; Z87.19 Personal history of other diseases of the digestive system; Z79.4 Long term (current) use of insulin; Z79.84 Long term (current) use of oral hypoglycemic drugs; Z79.899 Other long term (current) drug therapy
CPT/HCPCS: 82962 ×2; 96372; 99283; 99406; A4606; J1815; J7040; Z7610

== ENCOUNTER 2017-10-20 11:01 | Emergency (ER) | payer MEDICARE, MEDICAID ==
[~2017-10-20] VITALS: Ht 167.6 cm; Wt 73.0 kg
[~2017-10-20 11:01] MED LIST changes: -DIVA125T3 PO; +DIVA125T32 PO; +METF-440 PO; -METF500T4 PO
[2017-10-20] MEDS ORDERED: IV NS 0.9% 500 ML BAG IV ONE (11:30)
[2017-10-20] MEDS ORDERED: KETOROLAC TROMETHAMINE INJ 30 MG/ML VIAL IV ONE (11:30)
[2017-10-20] MEDS ORDERED: KETOROLAC TROMETHAMINE INJ 30 MG/ML VIAL ONE ×2 (11:34→11:36)
--- NOTE | 2017-10-20 11:35 | NUR ---
R ELBOW PAIN AND SWELLING. DENIES ANY TRAUMA , NAD NOTED, VSS, RESP EVEN AND UNLABORED, PT WAS PUT ON MONITOR. WAITING FOR MD [place].
[2017-10-20 11:56] LABS: BASOPHILS # (AUTO) 0.2 /CMM (0.0-0.2); BASOPHILS % (AUTO) 2.3 % (0.0-2.0); EOSINOPHILS % (AUTO) 1.9 % (0.0-6.0); HEMATOCRIT 41 % (39-51); HEMOGLOBIN 13.6 g/dL (13.5-17.5); LYMPHOCYTES # (AUTO) 1.4 /CMM (0.8-4.8); LYMPHOCYTES % (AUTO) 15.4 % (20.0-44.0); MEAN CORPUSCULAR HGB CONC 34 g/dl (31.0-36.0); MEAN CORPUSCULAR VOLUME 80 fL (80-96); MONOCYTES # (AUTO) 0.7 /CMM (0.1-1.30); MONOCYTES % (AUTO) 8.3 % (2.0-12.0); NEUTROPHILS # (AUTO) 6.3 /CMM (1.8-8.9); NEUTROPHILS % (AUTO) 72.1 % (43.0-81.0); PLATELET COUNT (AUTO) 143 /CMM (150-450); RDW COEFFICIENT OF VARIATION 15.6 (11.5-15.0); RED BLOOD CELL COUNT(AUTO) 5.06 MIL/uL (4.5-6.0); WHITE BLOOD COUNT (AUTO) 8.8 K/uL (4.3-11.0)
[2017-10-20 12:06] LABS: CALCIUM, SERUM 9.3 mg/dL (8.5-10.1); POTASSIUM 4.5 mmol/L (3.5-5.1)
[2017-10-20 12:20] LABS: URIC ACID 6.8 mg/dL (2.6-7.2)
[2017-10-20 12:54] LABS: C-REACTIVE PROTEIN 4.2 mg/dL (0.0-0.9)
--- NOTE | 2017-10-20 13:01 | NUR ---
CALLED [facility], DELI SLICER WAS PAGED.
--- NOTE | 2017-10-20 14:11 | NUR ---
CALLED [facility] FOR TRANSPORT ETA OF 1430 WAS GIVEN. TRIP#[id number]
[2017-10-20 14:52] VITALS: BP 134/70
--- NOTE | 2017-10-20 14:52 | NUR ---
Patient discharged to home in stable condition. Written and verbal after care instructions given. Patient verbalizes understanding of instruction.IV removed. Catheter intact and site benign. Pressure and 4x4 applied to site. No bleeding noted. Prescription given.
== END 2017-10-20 14:56 ==
LOC: ER 11:02
DX: M70.21 Olecranon bursitis, right elbow (principal); E11.9 Type 2 diabetes mellitus without complications; G40.909 Epilepsy, unspecified, not intractable, without status epilepticus; I10 Essential (primary) hypertension; K74.60 Unspecified cirrhosis of liver; F10.10 Alcohol abuse, uncomplicated; F17.200 Nicotine dependence, unspecified, uncomplicated; I25.10 Atherosclerotic heart disease of native coronary artery without angina pectoris; F25.9 Schizoaffective disorder, unspecified; M10.9 Gout, unspecified; Z79.4 Long term (current) use of insulin; Z87.19 Personal history of other diseases of the digestive system
CPT/HCPCS: 36415; 73080-TC; 80048-TC; 84550-TC; 85025-TC; 85652-TC; 86140-TC; A4606; J1885; J7040; Z7610

== ENCOUNTER 2020-08-20 12:53 | Emergency (ER) | payer MEDICARE, OTHER ==
[~2020-08-20] VITALS: Ht 170.2 cm; Wt 74.8 kg
[~2020-08-20 12:53] MED LIST changes: +HYDR-4384 PO; -HYDR-552 PO
--- NOTE | 2020-08-20 12:53 | NUR ---
PT HERO FROM [facility] FOR HYPERGLYCEMIA BLOOD SUGAR >500. PT IS AAOX4, NOT IN RESPIRATORY DISTRESS, HOOKED TO WEIGHING STATION OPERATOR, KEPT RESTED AND COMFORTABLE, WILL CONTINUE TO MONITOR
[2020-08-20] MEDS ORDERED: CARV12.5 PO (13:17)
[2020-08-20] MEDS ORDERED: ESCI10TA PO (13:17)
[2020-08-20] MEDS ORDERED: INSU100V27 SQ (13:17)
[2020-08-20] MEDS ORDERED: BISA-79 PO (13:17)
[2020-08-20] MEDS ORDERED: INSU100V7 SQ (13:17)
--- NOTE | 2020-08-20 13:27 | NUR ---
IV LINE ESTABLISHED BLOOD DRAWN AND SENT TO LAB.
[2020-08-20] MEDS: IV NS 0.9% 1,000 ML BAG IV ONE ×2 (13:50→15:41)
[2020-08-20 14:02] LABS: BASOPHILS % (AUTO) 0.3 % (0.0-2.0); EOSINOPHILS % (AUTO) 2.9 % (0.0-6.0); HEMATOCRIT 36 % (39-51); LYMPHOCYTES # (AUTO) 2.8 /CMM (0.8-4.8); LYMPHOCYTES % (AUTO) 20.7 % (20.0-44.0); MEAN CORPUSCULAR HGB CONC 34 g/dl (31.0-36.0); MEAN CORPUSCULAR VOLUME 84 fL (80-96); MONOCYTES # (AUTO) 1.1 /CMM (0.1-1.30); MONOCYTES % (AUTO) 8.2 % (2.0-12.0); NEUTROPHILS # (AUTO) 9.1 /CMM (1.8-8.9); NEUTROPHILS % (AUTO) 67.9 % (43.0-81.0); PLATELET COUNT (AUTO) 183 /CMM (150-450); RED BLOOD CELL COUNT(AUTO) 4.27 MIL/uL (4.5-6.0); WHITE BLOOD COUNT (AUTO) 13.4 K/uL (4.3-11.0)
[2020-08-20 14:22] LABS: ALBUMIN 2.9 g/dL (3.4-5.0); BILIRUBIN,TOTAL 0.4 mg/dL (0.2-1.0); CALCIUM, SERUM 8.4 mg/dL (8.5-10.1); CREATININE 1.7 mg/dL (0.6-1.3); POTASSIUM 4.8 mmol/L (3.5-5.1); TOTAL PROTEIN, SERUM 6.4 g/dL (6.4-8.2)
[2020-08-20 15:07] LABS: ALCOHOL, BLOOD < 3 mg/dL (0-0)
[2020-08-20] MEDS ORDERED: INSULIN REGULAR, HUMAN 100 UNIT/ML 10 ML VIAL ONE (15:38)
[2020-08-20] MEDS: INSULIN REGULAR, HUMAN 100 UNIT/ML 10 ML VIAL IV ONE (15:41)
[2020-08-20 15:59] LABS: SERUM AMMONIA 4 umol/L (11-32)
[2020-08-20 18:03] VITALS: BP 140/72
--- NOTE | 2020-08-20 18:03 | NUR ---
IV removed. Catheter intact and site benign. Pressure and 4x4 applied to site. No bleeding noted.
--- NOTE | 2020-08-20 18:03 | NUR ---
Note paulie in ED - 08/20/20 at 1822 by ALISA IV removed. Catheter intact and site benign. Pressure and 4x4 applied to site. No bleeding noted.Patient discharged to home in stable condition. Written and verbal after care instructions given. Patient verbalizes understanding of instruction.
--- NOTE | 2020-08-20 18:08 | NUR ---
CALLED [facility] FOR TRANSPORT TO [facility]. ETA 20-30 MINUTES.
--- NOTE | 2020-08-20 19:02 | NUR ---
Patient discharged to [facility] in stable condition. Written and verbal after care instructions given. Patient verbalizes understanding of instruction. Patient will be brought back to [facility].
== END 2020-08-20 18:04 | disposition home or self-care (01) ==
LOC: ER 12:56
DX: E11.65 Type 2 diabetes mellitus with hyperglycemia (principal); F03.90 Unspecified dementia, unspecified severity, without behavioral disturbance, psychotic disturbance, mood disturbance, and anxiety; G40.909 Epilepsy, unspecified, not intractable, without status epilepticus; I10 Essential (primary) hypertension; F25.9 Schizoaffective disorder, unspecified; F10.10 Alcohol abuse, uncomplicated; F17.200 Nicotine dependence, unspecified, uncomplicated; Y90.0 Blood alcohol level of less than 20 mg/100 ml; Z79.4 Long term (current) use of insulin; Z79.899 Other long term (current) drug therapy
CPT/HCPCS: 36415; 70450; 71045; 80048; 80076; 80320; 82010; 82140; 83690; 85025; 96361; 96374; 99285; J1815; J7030 ×2; G0480

== ENCOUNTER 2021-11-02 19:25 | Inpatient (IN) | payer MEDICARE, OTHER ==
[~2021-11-02] VITALS: Ht 170.2 cm; Wt 85.3 kg
[~2021-11-02 19:25] MED LIST changes: -ACET-868 PO; -AMYL1CAP62 PO; +BISA-79 PO; +CARV12.5 PO; -CARV3.122 PO; -DIVA125T32 PO; -DIVA500T54 PO; +ESCI10TA PO; -HYDR-4384 PO; -INSU100I4 SQ; +INSU100V27 SQ; +INSU100V7 SQ; -INSU300I SQ; -RANI150T8 PO; -ZOLP5TAB8 PO
[2021-11-02 20:33] LABS: BASOPHILS # (AUTO) 0.1 K/uL (0.0-0.2); BASOPHILS % (AUTO) 0.5 % (0.0-2.0); EOSINOPHILS % (AUTO) 0.4 % (0.0-6.0); HEMATOCRIT 41 % (39-51); HEMOGLOBIN 13.7 g/dL (13.5-17.5); LYMPHOCYTES # (AUTO) 2.1 K/uL (0.8-4.8); LYMPHOCYTES % (AUTO) 19.7 % (20.0-44.0); MEAN CORPUSCULAR HGB CONC 33 g/dl (31.0-36.0); MEAN CORPUSCULAR VOLUME 79 fL (80-96); MONOCYTES # (AUTO) 1.1 K/uL (0.1-1.30); MONOCYTES % (AUTO) 10.6 % (2.0-12.0); NEUTROPHILS # (AUTO) 7.3 K/uL (1.8-8.9); NEUTROPHILS % (AUTO) 68.8 % (43.0-81.0); PLATELET COUNT (AUTO) 159 K/uL (150-450); RED BLOOD CELL COUNT(AUTO) 5.23 MIL/uL (4.5-6.0); WHITE BLOOD COUNT (AUTO) 10.7 K/uL (4.3-11.0)
[2021-11-02 20:36] LABS: CARBON DIOXIDE 20 mmol/L (21-32); CHLORIDE 98 mmol/L (98-107); CREATININE 2.8 mg/dL (0.6-1.3); GLUCOSE 238 mg/dL (74-106); POTASSIUM 4.3 mmol/L (3.5-5.1); SODIUM SERUM 131 mmol/L (136-145); UREA NITROGEN, BLOOD 51 mg/dL (7-18)
[2021-11-02 20:49] LABS: ALANINE AMINOTRANSFERASE 19 U/L (12-78); ALBUMIN 3.3 g/dL (3.4-5.0); ALKALINE PHOSPHATASE 104 U/L (46-116); ASPARTATE AMINOTRANSFERASE 15 U/L (15-37); BILIRUBIN,DIRECT 0.1 mg/dL (0.0-0.2); BILIRUBIN,TOTAL 0.5 mg/dL (0.2-1.0); TOTAL PROTEIN, SERUM 7.1 g/dL (6.4-8.2)
[2021-11-02] MEDS ORDERED: IV NS 0.9% 500 ML BAG IV ONE (22:00)
[2021-11-02] MEDS ORDERED: CANA100T PO (22:26)
[2021-11-02] MEDS ORDERED: VALS160T2 PO (22:33)
[2021-11-02] MEDS ORDERED: FURO-144 PO (22:33)
[2021-11-02] MEDS ORDERED: AMLO-212 PO (22:34)
[2021-11-02] MEDS ORDERED: ASPI-1420 PO (22:39)
[2021-11-02] MEDS ORDERED: PANT40TA49 PO (22:42)
[2021-11-02] MEDS ORDERED: QUET100T PO (22:54)
[2021-11-02] MEDS ORDERED: INSU100V11 SQ (22:58)
[2021-11-02] MEDS ORDERED: MAG HYDROX/AL HYDROX/SIMETH 30 ML UDC PO PRN (23:00)
[2021-11-02] MEDS ORDERED: ACETAMINOPHEN 325 MG TABLET PO PRN (23:00)
[2021-11-02] MEDS ORDERED: MORPHINE SULFATE INJ 2 MG/ML DISP.SYRIN IV PRN (23:00)
[2021-11-02] MEDS ORDERED: ONDANSETRON HCL/PF 4 MG/2 ML VIAL IVP PRN (23:00)
[2021-11-02] MEDS ORDERED: HYDROCODONE/APAP 5/325MG TABLET PO PRN (23:00)
[2021-11-02] MEDS ORDERED: Z GUARD REMEDY 4 OZ OINT TP PRN (23:00)
[2021-11-02] MEDS ORDERED: TEMAZEPAM 15 MG CAPSULE PO PRN (23:00)
[2021-11-02] MEDS ORDERED: MAGNESIUM HYDROXIDE 30 ML UDC PO PRN (23:00)
[2021-11-02] MEDS ORDERED: HOME MED MISCELLANEOUS XX SCH (23:30)
[2021-11-02] MEDS ORDERED: DEXTROSE 50%-WATER 50 ML DISP.SYRIN IV PRN (23:30)
[2021-11-02] MEDS: IV NS 0.9% 1,000 ML IV PRN (23:48)
[2021-11-03 02:43] VITALS: BP 153/75
[2021-11-03 06:38] LABS: BASOPHILS % (AUTO) 0.5 % (0.0-2.0); EOSINOPHILS % (AUTO) 0.5 % (0.0-6.0); HEMATOCRIT 39 % (39-51); HEMOGLOBIN 12.7 g/dL (13.5-17.5); LYMPHOCYTES # (AUTO) 2.2 K/uL (0.8-4.8); LYMPHOCYTES % (AUTO) 23.2 % (20.0-44.0); MEAN CORPUSCULAR HGB CONC 33 g/dl (31.0-36.0); MEAN CORPUSCULAR VOLUME 79 fL (80-96); MONOCYTES # (AUTO) 1.1 K/uL (0.1-1.30); NEUTROPHILS % (AUTO) 63.8 % (43.0-81.0); PLATELET COUNT (AUTO) 146 K/uL (150-450); RED BLOOD CELL COUNT(AUTO) 4.89 MIL/uL (4.5-6.0); WHITE BLOOD COUNT (AUTO) 9.3 K/uL (4.3-11.0)
[2021-11-03 07:32] LABS: CALCIUM, SERUM 8.2 mg/dL (8.5-10.1); CREATININE 2.5 mg/dL (0.6-1.3); MAGNESIUM 2.3 mg/dL (1.8-2.4); PHOSPHORUS 3.9 mg/dL (2.5-4.9); POTASSIUM 4.4 mmol/L (3.5-5.1)
[2021-11-03] MEDS: QUETIAPINE FUMARATE 100 MG TABLET PO SCH ×2 (08:27→16:51)
[2021-11-03] MEDS: ESCITALOPRAM OXALATE (10 MG) 10 MG TABLET PO SCH (08:27)
[2021-11-03] MEDS: PANTOPRAZOLE 40 MG TABLET.DR PO SCH (08:27)
[2021-11-03] MEDS: LEVETIRACETAM (250 MG) 250 MG TABLET PO SCH ×2 (08:27→21:25)
[2021-11-03] MEDS: ASPIRIN EC 81 MG TABLET.DR PO SCH (08:27)
[2021-11-03] MEDS: AMLODIPINE BESYLATE 5 MG TABLET PO SCH (08:27)
[2021-11-03] MEDS: CARVEDILOL 3.125 MG TABLET PO SCH ×2 (08:28→16:52)
[2021-11-03] MEDS: BLOOD SUGAR DIAGNOSTIC 1 EACH STRIP IN SCH ×4 (08:38→21:24)
[2021-11-03 08:50] LABS: THYROID STIMULATING HORMONE 2.291 uIU/mL (0.358-3.74)
[2021-11-03] MEDS: INSULIN REGULAR, HUMAN 100 UNIT/ML 3 ML VIAL SQ PRN ×4 (10:16→21:31)
[2021-11-03 20:00] VITALS: BP 142/77
[2021-11-03] MEDS ORDERED: INSULIN GLARGINE, 100 UNIT/ML CARTRIDGE SQ SCH (22:00)
[2021-11-03] MEDS ORDERED: ATORVASTATIN 10 MG TABLET PO SCH (22:00)
[2021-11-04] MEDS: IV NS 0.9% 1,000 ML IV PRN (00:55)
[2021-11-04 06:05] LABS: CALCIUM, SERUM 8.2 mg/dL (8.5-10.1); MAGNESIUM 2.2 mg/dL (1.8-2.4); PHOSPHORUS 4.6 mg/dL (2.5-4.9); POTASSIUM 3.8 mmol/L (3.5-5.1)
[2021-11-04 06:22] LABS: BASOPHILS % (AUTO) 0.5 % (0.0-2.0); EOSINOPHILS % (AUTO) 1.7 % (0.0-6.0); HEMATOCRIT 37 % (39-51); HEMOGLOBIN 12.3 g/dL (13.5-17.5); LYMPHOCYTES # (AUTO) 1.8 K/uL (0.8-4.8); LYMPHOCYTES % (AUTO) 25.5 % (20.0-44.0); MEAN CORPUSCULAR HGB CONC 33 g/dl (31.0-36.0); MEAN CORPUSCULAR VOLUME 80 fL (80-96); MONOCYTES # (AUTO) 0.8 K/uL (0.1-1.30); MONOCYTES % (AUTO) 10.7 % (2.0-12.0); NEUTROPHILS # (AUTO) 4.4 K/uL (1.8-8.9); NEUTROPHILS % (AUTO) 61.6 % (43.0-81.0); PLATELET COUNT (AUTO) 131 K/uL (150-450); RED BLOOD CELL COUNT(AUTO) 4.68 MIL/uL (4.5-6.0); WHITE BLOOD COUNT (AUTO) 7.1 K/uL (4.3-11.0)
[2021-11-04] MEDS: ASPIRIN EC 81 MG TABLET.DR PO SCH (08:56)
[2021-11-04] MEDS: CARVEDILOL 3.125 MG TABLET PO SCH (08:56)
[2021-11-04 08:57] VITALS: BP 168/73
[2021-11-04] MEDS: QUETIAPINE FUMARATE 100 MG TABLET PO SCH (08:57)
[2021-11-04] MEDS: ESCITALOPRAM OXALATE (10 MG) 10 MG TABLET PO SCH (08:57)
[2021-11-04] MEDS: LEVETIRACETAM (250 MG) 250 MG TABLET PO SCH (08:57)
[2021-11-04] MEDS: AMLODIPINE BESYLATE 5 MG TABLET PO SCH (08:57)
[2021-11-04] MEDS: PANTOPRAZOLE 40 MG TABLET.DR PO SCH (08:57)
[2021-11-04] MEDS ORDERED: BISACODYL (5 MG) 5 MG TABLET.DR PO SCH (09:00)
[2021-11-04] MEDS: INSULIN REGULAR, HUMAN 100 UNIT/ML 3 ML VIAL SQ PRN ×2 (09:09→12:16)
[2021-11-04] MEDS: BLOOD SUGAR DIAGNOSTIC 1 EACH STRIP IN SCH ×2 (09:10→12:14)
== END 2021-11-04 13:55 | DRG 640 ==
LOC: ER 19:27 → TELE1 22:32 → MEDSG1 23:43
PROVIDERS: ADMIT Nurse Practitioner Acute Care; ATTEND Nurse Practitioner Acute Care
DX: E86.1 Hypovolemia (principal); N17.0 Acute kidney failure with tubular necrosis; I42.9 Cardiomyopathy, unspecified; I13.0 Hypertensive heart and chronic kidney disease with heart failure and stage 1 through stage 4 chronic kidney disease, or unspecified chronic kidney disease; K86.1 Other chronic pancreatitis; E46 Unspecified protein-calorie malnutrition; E87.1 Hypo-osmolality and hyponatremia; E11.65 Type 2 diabetes mellitus with hyperglycemia; I25.10 Atherosclerotic heart disease of native coronary artery without angina pectoris; G40.909 Epilepsy, unspecified, not intractable, without status epilepticus; E78.5 Hyperlipidemia, unspecified; Z87.19 Personal history of other diseases of the digestive system; F25.9 Schizoaffective disorder, unspecified; Z79.4 Long term (current) use of insulin; Z79.84 Long term (current) use of oral hypoglycemic drugs; N18.9 Chronic kidney disease, unspecified; Z79.899 Other long term (current) drug therapy; I50.9 Heart failure, unspecified; K21.9 Gastro-esophageal reflux disease without esophagitis; F41.9 Anxiety disorder, unspecified; K74.60 Unspecified cirrhosis of liver; E11.22 Type 2 diabetes mellitus with diabetic chronic kidney disease; K70.9 Alcoholic liver disease, unspecified; Z96.649 Presence of unspecified artificial hip joint; F10.10 Alcohol abuse, uncomplicated; Y90.9 Presence of alcohol in blood, level not specified; E88.09 Other disorders of plasma-protein metabolism, not elsewhere classified
CPT/HCPCS: 36415; 76770-TC; 80048-TC; 80061-TC; 80076-TC; 82010-TC; 82962-TC; 83735-TC; 84100-TC; 84443-TC; 84484-TC; 85025-TC; 87081-TC; C9803; G0378; J1815; J7030

== ENCOUNTER 2022-09-28 17:29 | Inpatient (IN) | payer MEDICARE, OTHER ==
[~2022-09-28] VITALS: Ht 167.6 cm; Wt 74.4 kg
[~2022-09-28 17:29] MED LIST changes: +AMLO-212 PO; +ASPI-1420 PO; +CANA100T PO; +INSU100V11 SQ; -INSU100V27 SQ; -LOSA25TA3 PO; -METF-440 PO; +PANT40TA49 PO; +QUET100T PO; +VALS160T2 PO
[2022-09-28] MEDS ORDERED: IV NS 0.9% 1,000 ML BAG IV ONE (18:00)
--- NOTE | 2022-09-28 18:00 | NUR ---
NURSE LIAISON AT BEDSIDE
[2022-09-28 18:08] LABS: BASOPHILS # (AUTO) 0.1 K/uL (0.0-0.2); BASOPHILS % (AUTO) 0.5 % (0.0-2.0); EOSINOPHILS % (AUTO) 0.8 % (0.0-6.0); HEMATOCRIT 40 % (39-51); HEMOGLOBIN 13.2 g/dL (13.5-17.5); LYMPHOCYTES # (AUTO) 1.4 K/uL (0.8-4.8); LYMPHOCYTES % (AUTO) 12.7 % (20.0-44.0); MEAN CORPUSCULAR HGB CONC 33 g/dl (31.0-36.0); MEAN CORPUSCULAR VOLUME 79 fL (80-96); MONOCYTES # (AUTO) 0.7 K/uL (0.1-1.30); MONOCYTES % (AUTO) 6.1 % (2.0-12.0); NEUTROPHILS # (AUTO) 8.8 K/uL (1.8-8.9); NEUTROPHILS % (AUTO) 79.9 % (43.0-81.0); PLATELET COUNT (AUTO) 211 K/uL (150-450); RED BLOOD CELL COUNT(AUTO) 5.04 MIL/uL (4.5-6.0)
[2022-09-28 18:27] LABS: CALCIUM, SERUM 9.7 mg/dL (8.5-10.1); CREATININE 1.9 mg/dL (0.6-1.3)
--- NOTE | 2022-09-28 18:34 | NUR ---
URINE COLLECTED AND SENT TO LAB
--- NOTE | 2022-09-28 18:34 | NUR ---
BS REPORTED AT 736
[2022-09-28 18:41] LABS: ALBUMIN 3.2 g/dL (3.4-5.0); BILIRUBIN,DIRECT 0.1 mg/dL (0.0-0.2); BILIRUBIN,TOTAL 0.4 mg/dL (0.2-1.0)
--- NOTE | 2022-09-28 18:56 | NUR ---
COVID SWAB COLLECTED AND SENT TO LAB
[2022-09-28] MEDS ORDERED: ASCO-340 PO (18:58)
[2022-09-28] MEDS ORDERED: AMYL1CAP56 PO (18:58)
[2022-09-28] MEDS ORDERED: LACT-239 PO (18:58)
[2022-09-28] MEDS ORDERED: CLON0.1T PO (18:58)
[2022-09-28] MEDS ORDERED: MAGN400T26 PO (18:58)
[2022-09-28] MEDS ORDERED: METF-881 PO ×2 (18:58)
[2022-09-28] MEDS ORDERED: FOLI1TAB26 PO (18:58)
[2022-09-28] MEDS ORDERED: FOLI0.4T6 PO (18:58)
[2022-09-28] MEDS ORDERED: LACT1CAP71 PO (18:58)
[2022-09-28] MEDS ORDERED: CHOL100043 PO (18:58)
[2022-09-28] MEDS ORDERED: CYAN-51 PO (18:58)
[2022-09-28] MEDS ORDERED: ZINC1CAP2 PO (18:58)
[2022-09-28] MEDS ORDERED: THIA100T88 PO (18:58)
[2022-09-28] MEDS ORDERED: INSULIN REGULAR, HUMAN 100 UNIT/ML 10 ML VIAL SQ ONE (19:00)
--- NOTE | 2022-09-28 19:05 | NUR ---
REC'D REPORT FROM INDIANA BAIRD FOR ISHA
[2022-09-28 19:10] LABS: BILIRUBIN,URINE NEGATIVE (NEGATIVE); LEUKOCYTE ESTERASE ,URINE NEGATIVE (NEGATIVE); NITRITE, URINE NEGATIVE (NEGATIVE); PH,URINE 5.5 (5.0-8.0); PROTEIN,URINE NEGATIVE (NEGATIVE); UGLUCOSE 3+ mg/dL (NEGATIVE); UROBILINOGEN,URINE 0.2 EU/dL (0.2)
--- NOTE | 2022-09-28 19:16 | NUR ---
REPORT GIVEN TO ROMARIO FOR ISHA
[2022-09-28 19:20] LABS: COLOR,URINE LIGHT YELLOW (YELLOW)
[2022-09-28 19:26] LABS: RBC,URINE 0-2 /HPF (0-2)
[2022-09-28 19:27] LABS: BACTERIA,URINE None seen /HPF (None Seen); SQUAMOUS EPITHELIAL CELL,UR Few /HPF (None Seen); WBC,URINE NONE SEEN /HPF (0-3); YEAST,URINE Few /HPF (None Seen)
--- NOTE | 2022-09-28 20:02 | NUR ---
MOVE SHEET SUBMITTED.
[2022-09-28] MEDS ORDERED: ONDANSETRON HCL/PF 4 MG/2 ML VIAL IVP PRN (21:00)
[2022-09-28] MEDS ORDERED: INSULIN REGULAR, HUMAN 100 UNIT in IV NS 0.9% 99 ML IV PRN ×2 (21:00)
[2022-09-28] MEDS ORDERED: ZOLPIDEM TARTRATE 5 MG TABLET PO PRN (21:00)
[2022-09-28] MEDS ORDERED: ACETAMINOPHEN 325 MG TABLET PO PRN (21:00)
[2022-09-28] MEDS ORDERED: Z GUARD REMEDY 4 OZ OINT TP PRN (21:00)
[2022-09-28] MEDS ORDERED: MAG HYDROX/AL HYDROX/SIMETH 30 ML UDC PO PRN (21:00)
[2022-09-28] MEDS ORDERED: IV NS 0.9% 1,000 ML IV PRN (21:00)
[2022-09-28] MEDS ORDERED: MAGNESIUM HYDROXIDE 30 ML UDC PO PRN (21:00)
[2022-09-28] MEDS ORDERED: QUETIAPINE FUMARATE 100 MG TABLET PO SCH (22:00)
[2022-09-28 22:07] LABS: CALCIUM, SERUM 9.6 mg/dL (8.5-10.1); CREATININE 1.6 mg/dL (0.6-1.3); POTASSIUM 4.4 mmol/L (3.5-5.1)
[2022-09-28 22:12] LABS: ALBUMIN 3.1 g/dL (3.4-5.0); BILIRUBIN,DIRECT 0.1 mg/dL (0.0-0.2); BILIRUBIN,TOTAL 0.2 mg/dL (0.2-1.0); TOTAL PROTEIN, SERUM 6.6 g/dL (6.4-8.2)
[2022-09-28 23:27] LABS: CALCIUM, SERUM 9.4 mg/dL (8.5-10.1); CREATININE 1.6 mg/dL (0.6-1.3); POTASSIUM 3.9 mmol/L (3.5-5.1)
[2022-09-29] VITALS (20 sets, daily range): BP systolic 88–123; BP diastolic 42–74
--- NOTE | 2022-09-29 00:23 | NUR ---
DR TONG PAGED PER DR WOODY.
[2022-09-29] MEDS ORDERED: INSULIN REGULAR, HUMAN 100 UNIT/ML 10 ML VIAL ONE (00:28)
[2022-09-29] MEDS ORDERED: QUETIAPINE FUMARATE 100 MG TABLET ONE (00:28)
[2022-09-29] MEDS ORDERED: ZOLPIDEM TARTRATE 5 MG TABLET ONE (00:54)
[2022-09-29] MEDS ORDERED: HEPARIN SODIUM, PORCINE 5000 UNITS/1 ML VIAL ONE (00:55)
--- NOTE | 2022-09-29 01:20 | NUR ---
HEPARIN STK NON ADMIN, NOT IN ED, PULLED FROM FLOOR
--- NOTE | 2022-09-29 01:20 | NUR ---
bg 207
--- NOTE | 2022-09-29 01:26 | NUR ---
GAVE REPORT TO INDIANA STEPHENS FOR ISHA
[2022-09-29] MEDS: BLOOD SUGAR DIAGNOSTIC 1 EACH STRIP IN SCH ×8 (01:36→09:08)
--- NOTE | 2022-09-29 01:37 | NUR ---
Gareth apodaca in EDM - 09/29/22 at 0142 by MISTY INSULIN DRIP RUNNING. 4UNIT/HR LFT WRIST 20G. USING FERN TED FORMULA BG 207X 2= 414. 414/100= 4.14
--- NOTE | 2022-09-29 01:37 | NUR ---
Gareth apodaca in EDM - 09/29/22 at 0139 by MISTY INSULIN DRIP RUNNING. 4UNIT/HR USING FERN TED FORMULA BG 207X 2= 414. 414/100= 4.14
[2022-09-29] MEDS ORDERED: IV D5/ 0.9% NACL 1,000 ML IV PRN (02:00)
[2022-09-29] MEDS: HEPARIN SODIUM, PORCINE 5000 UNITS/1 ML VIAL SQ SCH ×3 (02:43→21:56)
[2022-09-29 05:23] LABS: BASOPHILS % (AUTO) 0.4 % (0.0-2.0); EOSINOPHILS % (AUTO) 3.4 % (0.0-6.0); HEMATOCRIT 37 % (39-51); HEMOGLOBIN 12.5 g/dL (13.5-17.5); LYMPHOCYTES # (AUTO) 2.8 K/uL (0.8-4.8); LYMPHOCYTES % (AUTO) 26.9 % (20.0-44.0); MEAN CORPUSCULAR HGB CONC 34 g/dl (31.0-36.0); MEAN CORPUSCULAR VOLUME 78 fL (80-96); MONOCYTES % (AUTO) 9.8 % (2.0-12.0); NEUTROPHILS # (AUTO) 6.1 K/uL (1.8-8.9); NEUTROPHILS % (AUTO) 59.5 % (43.0-81.0); PLATELET COUNT (AUTO) 190 K/uL (150-450); RED BLOOD CELL COUNT(AUTO) 4.78 MIL/uL (4.5-6.0); WHITE BLOOD COUNT (AUTO) 10.3 K/uL (4.3-11.0)
[2022-09-29 05:27] LABS: CREATININE 1.6 mg/dL (0.6-1.3); MAGNESIUM 1.9 mg/dL (1.8-2.4); PHOSPHORUS 1.9 mg/dL (2.5-4.9); POTASSIUM 3.2 mmol/L (3.5-5.1)
[2022-09-29 05:46] LABS: CREATININE 1.6 mg/dL (0.6-1.3); POTASSIUM 3.2 mmol/L (3.5-5.1)
--- NOTE | 2022-09-29 07:40 | NUR ---
ICU/RN PT IS ON INSULIN DRIP.ON ROOM AIR SAT O2-98%, V.S STABLE,AFEBRILE.NO PAIN REPORTED AT THIS TIME.IV INFUSING ORDERED.PT IS AWAKE ALERT.SKIN INTACT.LABS REVIEW. NOTIFIED .
[2022-09-29] MEDS: PANTOPRAZOLE 40 MG VIAL IV SCH (08:18)
[2022-09-29] MEDS ORDERED: LEVETIRACETAM (250 MG) 250 MG TABLET PO SCH (09:00)
[2022-09-29] MEDS: CARVEDILOL 3.125 MG TABLET PO SCH ×2 (09:00→21:00)
[2022-09-29] MEDS ORDERED: AMLODIPINE BESYLATE 5 MG TABLET PO SCH (09:00)
--- NOTE | 2022-09-29 09:00 | NUR ---
ICU/RN INSULIN DRIP STOP ORDERED.IV FLUIDS STOP. DUE MEDS ARE GIVEN ORDERED.CONTINUE MONITORING.
[2022-09-29] MEDS ORDERED: POTASSIUM CHLORIDE 20 MEQ TAB.PRT.SR PO ONE (10:00)
[2022-09-29] MEDS ORDERED: *INSULIN REGULAR(HUMULIN R)HUM 100 UNIT/ML VIAL SQ PRN (10:00)
[2022-09-29] MEDS ORDERED: DEXTROSE 50%-WATER 50 ML DISP.SYRIN IV PRN (10:00)
[2022-09-29] MEDS: BLOOD SUGAR DIAGNOSTIC 1 EACH STRIP VI SCH ×3 (11:10→22:12)
[2022-09-29] MEDS ORDERED: ENSURE CLEAR 237 ML LIQUID (MIX BERRY) PO PRN (12:30)
[2022-09-29] MEDS ORDERED: BISACODYL (5 MG) 5 MG TABLET.DR PO SCH (12:30)
[2022-09-29] MEDS ORDERED: CLONIDINE HCL 0.1 MG TABLET PO PRN (12:30)
[2022-09-29] MEDS: INSULIN REGULAR, HUMAN 100 UNIT/ML 3 ML VIAL SQ PRN ×2 (12:39→18:01)
--- NOTE | 2022-09-29 15:11 | NUR ---
ICU/RN ABDOMINAL ULTRASOUND DONE .PT HAS LIKE 800 ML URINE IN THE BLADDER.ASK PT TO GO TO BATHROOM AND URINATE.PT URINATED 800ML OF YELLOW URINE. V/S STABLE ,AFEBRILE.OK TO TRANSFER TO MED SURGE UNIT.WAITING FOR THE BED.
--- NOTE | 2022-09-29 15:30 | NUR ---
ICU/RN PT TRANSFERED TO [facility] UNIT.AWAKE ,ALERT V/S STABLE,AFEBRILE.NO PAIN REPORTED AT THIS TIME.
--- NOTE | 2022-09-29 15:40 | NUR ---
MS INDIANA REMY (TRANSFERRED FROM ICU) RECEIVED A 62 YO MALE PT FROM ICU VIA WC ACCOMPANIED BY [place] CROWDER. BED SIDE ENDORSEMENT. PT A/O X 4 AND AMBULATORY. NO SOB OR CARDIAC DISTRESS NOTED. DENIES PAIN AT THIS TIME. ON ROOM AIR AND TOLERATING WELL. IV ACCESS ON LFA GAUGE 20 PATENT, INTACT AD SALINE LOCKED. BELONGINGS WITH THE PT. SKIN ASSESSMENT REFUSED. SAFETY MEASURES INITIATED: BED LOCKED AND IN LOWEST POSITION, SIDE RAILS UP X 2. CALL LIGHT AND BED SIDE TABLE IN EASY REACH AND WILL MONITOR PT ACCORDINGLY.
[2022-09-29] MEDS: PANTOPRAZOLE 40 MG TABLET.DR PO SCH (16:42)
[2022-09-29] MEDS: LACTOBACILLUS RHAMNOSUS GG 1 EACH CAP.SPRINK PO SCH (16:42)
[2022-09-29] MEDS: CARVEDILOL 12.5 MG TABLET PO SCH (16:43)
[2022-09-29] MEDS: INSULIN ASPART/LISPRO 100 UNIT/ML CARTRIDGE SQ SCH (16:52)
[2022-09-29] MEDS: LIPASE/PROTEASE/AMYLASE 1 EACH CAPSULE.DR PO SCH (17:07)
--- NOTE | 2022-09-29 18:43 | NUR ---
MS RN NOTES: PT ASLEEP EASILY AROUSED WITH VERBAL STIMULI, A/O X 4, ABLE TO MAKE NEEDS KNOWN, NO SOB OR CARDIAC DISTRESS NOTED, DENIES PAIN AT THIS TIME. IV ACCESS ON LAC GAUGE 18, PATENT INTACT AND SALINE LOCKED. PATIENT REMAINED STABLE.
--- NOTE | 2022-09-29 19:35 | NUR ---
RN OPENING NOTE RECEIVED PATIENT IN BED; AWAKE, A/O X 4. AMBULATORY. ON ROOM AIR; TOLERATING WELL WITH NO SOB OR CARDIAC DISTRESS NOTED. DENIES ANY PAIN OR DISCOMFORT AT THIS TIME. WITH IV ACCESS ON LEFT FA 20g: PATENT, INTACT AND SALINE LOCKED. SAFETY MEASURES IMPLEMENTED: CALL LIGHT AND TABLE WITHIN REACH, SIDE RAILS UP X 3, BED IN LOWEST LOCKED POSITION. WILL CONTINUE TO MONITOR THROUGHOUT SHIFT.
[2022-09-29] MEDS: LEVETIRACETAM (250 MG) 250 MG TABLET PO SCH (21:52)
[2022-09-29] MEDS ORDERED: QUETIAPINE FUMARATE 100 MG TABLET PO SCH (22:00)
[2022-09-29] MEDS ORDERED: ATORVASTATIN 10 MG TABLET PO SCH (22:00)
[2022-09-29] MEDS ORDERED: INSULIN GLARGINE, 100 UNIT/ML CARTRIDGE SQ SCH (22:00)
[2022-09-30 00:42] LABS: CREATININE 1.6 mg/dL (0.6-1.3); POTASSIUM 4.4 mmol/L (3.5-5.1)
[2022-09-30] MEDS: BLOOD SUGAR DIAGNOSTIC 1 EACH STRIP VI SCH ×3 (06:03→17:19)
[2022-09-30] MEDS: INSULIN REGULAR, HUMAN 100 UNIT/ML 3 ML VIAL SQ PRN ×3 (06:08→16:59)
--- NOTE | 2022-09-30 06:55 | NUR ---
RN CLOSING NOTE PATIENT IN BED; AWAKE, A/O X 4. AMBULATORY. STABLE ON ROOM AIR. IN NO ACUTE DISTRESS. DENIES ANY PAIN OR DISCOMFORT AT THIS TIME. WITH IV ACCESS ON LEFT FA 20g: PATENT, INTACT AND SALINE LOCKED. SAFETY MEASURES IN PLACE: CALL LIGHT AND TABLE WITHIN REACH, SIDE RAILS UP X 3, BED IN LOWEST LOCKED POSITION. ENDORSED TO MORNING SHIFT FOR ISHA.
[2022-09-30 06:56] LABS: BASOPHILS # (AUTO) 0.1 K/uL (0.0-0.2); EOSINOPHILS % (AUTO) 7.2 % (0.0-6.0); HEMATOCRIT 39 % (39-51); HEMOGLOBIN 12.7 g/dL (13.5-17.5); LYMPHOCYTES # (AUTO) 2.1 K/uL (0.8-4.8); MEAN CORPUSCULAR HGB CONC 33 g/dl (31.0-36.0); MEAN CORPUSCULAR VOLUME 80 fL (80-96); MONOCYTES # (AUTO) 0.6 K/uL (0.1-1.30); MONOCYTES % (AUTO) 8.9 % (2.0-12.0); NEUTROPHILS # (AUTO) 3.4 K/uL (1.8-8.9); NEUTROPHILS % (AUTO) 50.9 % (43.0-81.0); PLATELET COUNT (AUTO) 156 K/uL (150-450); RED BLOOD CELL COUNT(AUTO) 4.87 MIL/uL (4.5-6.0); WHITE BLOOD COUNT (AUTO) 6.6 K/uL (4.3-11.0)
--- NOTE | 2022-09-30 07:00 | NUR ---
MS RN OPENING NOTES: RECEIVED PT IN BED AWAKE, ALERT AND ORIENTED X 4. ABLE TO MAKE NEEDS KNOWN.NO SOB OBSERVED, DENIES PAIN AT THIS TIME. ON BLOOD SUGAR MONITORING,AND INSULIN ADMINISTRATION PERS SL ORDERED. IV ACCESS ON LFA GAUGE 20 PATENT,INTACT AND SALINE LOCKED.SAFETY MEASURES MAINTAINED: BED LOCKED AND IN LOWEST POSITION, SIDE RAILS UP X 2. CALL LIGHT IN EASY REACH AND WILL MONITOR PT ACCORDINGLY.
[2022-09-30 07:27] LABS: CALCIUM, SERUM 8.9 mg/dL (8.5-10.1); CREATININE 1.5 mg/dL (0.6-1.3); MAGNESIUM 2.2 mg/dL (1.8-2.4); PHOSPHORUS 4.1 mg/dL (2.5-4.9); POTASSIUM 4.2 mmol/L (3.5-5.1)
[2022-09-30] MEDS: INSULIN ASPART/LISPRO 100 UNIT/ML CARTRIDGE SQ SCH ×3 (07:44→17:20)
[2022-09-30 08:00] VITALS: BP 116/63
[2022-09-30] MEDS: LIPASE/PROTEASE/AMYLASE 1 EACH CAPSULE.DR PO SCH ×3 (08:20→17:18)
[2022-09-30] MEDS: PANTOPRAZOLE 40 MG VIAL IV SCH (08:20)
[2022-09-30] MEDS: LACTOBACILLUS RHAMNOSUS GG 1 EACH CAP.SPRINK PO SCH ×2 (08:21→17:18)
[2022-09-30] MEDS: PANTOPRAZOLE 40 MG TABLET.DR PO SCH ×2 (08:21→17:18)
[2022-09-30] MEDS: LEVETIRACETAM (250 MG) 250 MG TABLET PO SCH (08:21)
[2022-09-30] MEDS: HEPARIN SODIUM, PORCINE 5000 UNITS/1 ML VIAL SQ SCH (08:25)
[2022-09-30 08:27] VITALS: BP 116/63
[2022-09-30] MEDS: CARVEDILOL 12.5 MG TABLET PO SCH ×2 (08:33→17:00)
[2022-09-30] MEDS ORDERED: AMLODIPINE BESYLATE 5 MG TABLET PO SCH (09:00)
[2022-09-30] MEDS ORDERED: MAGNESIUM OXIDE 400 MG TABLET PO SCH (09:00)
[2022-09-30] MEDS ORDERED: Medication Not On Formulary EA (Canagliflozin (Invokana) 100 MG) PO SCH (09:00)
[2022-09-30] MEDS ORDERED: CYANOCOBALAMIN 500 MCG TABLET PO SCH (09:00)
[2022-09-30] MEDS ORDERED: FOLIC ACID 1 MG TABLET PO SCH (09:00)
[2022-09-30] MEDS ORDERED: ZINC SULFATE 220 MG CAPSULE PO SCH (09:00)
[2022-09-30] MEDS ORDERED: ESCITALOPRAM OXALATE (10 MG) 10 MG TABLET PO SCH (09:00)
[2022-09-30] MEDS ORDERED: ASCORBIC ACID 500 MG TABLET PO SCH (09:00)
[2022-09-30] MEDS ORDERED: MULTIVIT W/MINERALS 1 TAB TABLET PO SCH (09:00)
[2022-09-30] MEDS ORDERED: THIAMINE HCL 100 MG TABLET PO SCH (09:00)
[2022-09-30] MEDS ORDERED: CHOLECALCIFEROL 1,000 UNIT TABLET (VIT D3) PO SCH (09:00)
[2022-09-30] MEDS ORDERED: Insulin Glargine,Hum SQ (13:13)
--- NOTE | 2022-09-30 15:56 | NUR ---
RN NOTES: PATIENT RETAINED 800 ML URINE, INFORMED DR EASLEY AND ORDERED INSERT MENDOZA CATHETER PRIOR TO DC. ORDERS NOTED AND CARRIED OUT.
[2022-09-30 16:06] VITALS: BP 90/44
--- NOTE | 2022-09-30 16:30 | NUR ---
RN NOTES: CALLED ALICIA CAVAZOS IF I NEED TO MAKE REPORT AND SHE SAID NO REPORT FOR NURSING HOME. SUPERVISOR HARD CANDY IS 5PM.
--- NOTE | 2022-09-30 16:33 | NUR ---
RN NOTES: PT REFUSED MENDOZA CATHETER INSERTION, INFORMED DR EASLEY. PT ABLE TO URINATE 800ML.
[2022-09-30 17:00] VITALS: BP 99/54
--- NOTE | 2022-09-30 17:00 | NUR ---
RN NOTES: NUCLEAR CHEMISTRY TECHNICIAN IS 7PM PER DIRK.
--- NOTE | 2022-09-30 17:08 | NUR ---
RN NOTES: PT'S BLOOD SUGAR IS 546 MG/DL INITIALLY AND REPEATED IT AND RESULT IS 542MG/DL, DR EASLEY WAS INFORMED AND ORDERED GIVE 14 UNITS OF REGULAR INSULIN. ORDERS NOTED AND CARRIED OUT. PT ALERT AND HE SAID ITS HIS NORMAL BLOOD SUGAR.
--- NOTE | 2022-09-30 19:18 | NUR ---
DISCHARGE NOTES: PATIENT DC TO [facility]. PT A/O X 4 ABLE TO MAKE NEEDS KNOWN. NO SOB OR CARDIAC DISTRESS NOTED, DENIES PAIN AT THIS TIME. PT AMBULATORY. SKIN IS INTACT. IV ACCESS REMOVED. IDENTIFICATION BAND IN PLACE. BELONGINGS TAKEN WITH THE RESIDENT. DISCHARGE MEDS AND INSTRUCTIONS GIVEN TO ENVIRONMENTAL FIELD SERVICES TECHNICIAN. PT LEFT THE FACILITY STABLE.
== END 2022-09-30 19:18 | DRG 637 ==
LOC: ER 18:47 → TRANSITION 09-29 00:26 → ICU 09-29 01:02 → MED 09-29 15:34
PROVIDERS: ADMIT Nurse Practitioner Acute Care; ATTEND Student in an Organized Health Care Education/Training Program
DX: E11.10 Type 2 diabetes mellitus with ketoacidosis without coma (principal); N17.0 Acute kidney failure with tubular necrosis; I13.0 Hypertensive heart and chronic kidney disease with heart failure and stage 1 through stage 4 chronic kidney disease, or unspecified chronic kidney disease; E44.0 Moderate protein-calorie malnutrition; K86.1 Other chronic pancreatitis; E87.1 Hypo-osmolality and hyponatremia; E11.22 Type 2 diabetes mellitus with diabetic chronic kidney disease; G40.909 Epilepsy, unspecified, not intractable, without status epilepticus; I50.9 Heart failure, unspecified; K70.9 Alcoholic liver disease, unspecified; Z91.199 Patient's noncompliance with other medical treatment and regimen due to unspecified reason; N18.9 Chronic kidney disease, unspecified; Z20.822 Contact with and (suspected) exposure to COVID-19; Z87.19 Personal history of other diseases of the digestive system; K74.60 Unspecified cirrhosis of liver; Z79.899 Other long term (current) drug therapy; M10.9 Gout, unspecified; Z79.4 Long term (current) use of insulin; Z79.84 Long term (current) use of oral hypoglycemic drugs; Z91.14 Patient's other noncompliance with medication regimen; Z96.649 Presence of unspecified artificial hip joint; I25.10 Atherosclerotic heart disease of native coronary artery without angina pectoris; E87.6 Hypokalemia; E78.5 Hyperlipidemia, unspecified; E11.65 Type 2 diabetes mellitus with hyperglycemia; E86.1 Hypovolemia
CPT/HCPCS: 36415; 71045-TC; 76770-TC; 80048-TC; 80061-TC; 80076-TC; 81001; 82010-TC; 82962-TC; 83605-TC; 83690-TC; 83735-TC; 84100-TC; 85025-TC; 85730-TC; 87081-TC; 97116-TC; A4223; C9113; C9803; G0378; J1644; J1815; J2405; J7030; J7042

== ENCOUNTER 2022-10-13 17:56 | Inpatient (IN) | payer MEDICARE, OTHER ==
[~2022-10-13] VITALS: Ht 167.6 cm; Wt 76.9 kg
[~2022-10-13 17:56] MED LIST changes: +AMYL1CAP56 PO; +ASCO-340 PO; -ASPI-1420 PO; +CHOL100043 PO; +CLON0.1T PO; +CYAN-51 PO; +FOLI0.4T6 PO; +FOLI1TAB26 PO; -INSU100V7 SQ; +Insulin Glargine,Hum SQ; +LACT-239 PO; +LACT1CAP71 PO; +MAGN400T26 PO; +METF-881 PO; -QUET100T PO; +THIA100T88 PO; -VALS160T2 PO; +ZINC1CAP2 PO
--- NOTE | 2022-10-13 18:15 | NUR ---
[id number] from [facility], found disoriented. medical support specialist glucometer reading high
[2022-10-13] MEDS ORDERED: IV NS 0.9% 1,000 ML BAG IV ONE (18:30)
--- NOTE | 2022-10-13 18:30 | NUR ---
ESTABLISHED IV LINE 20 G RIGHT/LEFT AC
--- NOTE | 2022-10-13 18:35 | NUR ---
BLOOD SAMPLE OBTAINED SENT TO LAB
--- NOTE | 2022-10-13 18:40 | NUR ---
TAKEN TO CT
[2022-10-13] MEDS ORDERED: INSU100V27 SQ (18:46)
[2022-10-13] MEDS ORDERED: NIAC1000 PO (18:46)
[2022-10-13] MEDS ORDERED: INSU100V7 SQ (18:46)
[2022-10-13] MEDS ORDERED: VALS80TA2 PO (18:46)
[2022-10-13 18:53] LABS: BASOPHILS # (AUTO) 0.1 K/uL (0.0-0.2); BASOPHILS % (AUTO) 0.8 % (0.0-2.0); EOSINOPHILS % (AUTO) 3.1 % (0.0-6.0); HEMATOCRIT 43 % (39-51); HEMOGLOBIN 13.7 g/dL (13.5-17.5); LYMPHOCYTES # (AUTO) 1.6 K/uL (0.8-4.8); LYMPHOCYTES % (AUTO) 17.2 % (20.0-44.0); MEAN CORPUSCULAR HGB CONC 32 g/dl (31.0-36.0); MEAN CORPUSCULAR VOLUME 84 fL (80-96); MONOCYTES # (AUTO) 0.4 K/uL (0.1-1.30); MONOCYTES % (AUTO) 4.9 % (2.0-12.0); NEUTROPHILS # (AUTO) 6.7 K/uL (1.8-8.9); PLATELET COUNT (AUTO) 195 K/uL (150-450); RED BLOOD CELL COUNT(AUTO) 5.09 MIL/uL (4.5-6.0); WHITE BLOOD COUNT (AUTO) 9.1 K/uL (4.3-11.0)
--- NOTE | 2022-10-13 18:53 | NUR ---
COVID SWAB TAKEN SENT TO LAB
--- NOTE | 2022-10-13 19:25 | NUR ---
"RECEIVED REPORT FROM IND[place]NA RAIN. PATIENT IS AAOX3. CAME EARLIER WITH HIGH SUGAR LEVEL. RECEIVED WITH IV CANNULA #1 ON LEFT AC G20 AND |#2 ON RIGHT AC G20. PATIENT IS LYING IN BED. VITALS CHECKED."
[2022-10-13 19:44] LABS: ALBUMIN 3.6 g/dL (3.4-5.0); BILIRUBIN,DIRECT 0.1 mg/dL (0.0-0.2); BILIRUBIN,TOTAL 0.5 mg/dL (0.2-1.0); CREATININE 1.8 mg/dL (0.6-1.3); POTASSIUM 4.4 mmol/L (3.5-5.1); TOTAL PROTEIN, SERUM 7.6 g/dL (6.4-8.2)
[2022-10-13 19:47] LABS: SERUM AMMONIA 21 umol/L (11-32)
[2022-10-13] MEDS ORDERED: INSULIN REGULAR, HUMAN 100 UNITS in IV NS 0.9% 100 ML IV PRN ×2 (20:00)
[2022-10-13] MEDS ORDERED: IV PREMIX NS +20MEQ KCL 1 L IV PRN (20:00)
[2022-10-13 20:02] LABS: ALCOHOL, BLOOD < 3 mg/dL (0-0); THYROID STIMULATING HORMONE 5.469 uIU/mL (0.358-3.74)
--- NOTE | 2022-10-13 20:05 | NUR ---
SEEN BY FELICIA OLIVEIRA AT BEDSIDE
[2022-10-13] MEDS ORDERED: MAG HYDROX/AL HYDROX/SIMETH 30 ML UDC PO PRN (20:30)
[2022-10-13] MEDS ORDERED: ACETAMINOPHEN 325 MG TABLET PO PRN (20:30)
[2022-10-13] MEDS ORDERED: Thiamine 100 MG in IV D5W 50 ML IV SCH (20:30)
[2022-10-13] MEDS ORDERED: INSULIN REGULAR, HUMAN 100 UNIT in IV NS 0.9% 99 ML IV PRN ×2 (20:30)
[2022-10-13] MEDS ORDERED: IV NS 0.9% 1,000 ML IV PRN (20:30)
[2022-10-13] MEDS ORDERED: Z GUARD REMEDY 4 OZ OINT TP PRN (20:30)
[2022-10-13] MEDS ORDERED: MAGNESIUM HYDROXIDE 30 ML UDC PO PRN (20:30)
[2022-10-13] MEDS ORDERED: MORPHINE SULFATE INJ 2 MG/ML DISP.SYRIN IV PRN (20:30)
[2022-10-13] MEDS ORDERED: HYDROCODONE/APAP 5/325MG TABLET PO PRN (20:30)
[2022-10-13] MEDS ORDERED: LORAZEPAM INJ 2 MG/ML VIAL IV PRN (20:30)
[2022-10-13] MEDS ORDERED: ONDANSETRON HCL/PF 4 MG/2 ML VIAL IVP PRN (20:30)
--- NOTE | 2022-10-13 20:40 | NUR ---
REPORT GIVEN TO INDIANA STEPHENS
--- NOTE | 2022-10-13 21:09 | NUR ---
TRANSFERRED TO ICU VIA ACLS PROTOCOL
[2022-10-13 21:16] VITALS: BP 175/97
[2022-10-13] MEDS: BLOOD SUGAR DIAGNOSTIC 1 EACH STRIP IN SCH ×3 (21:22→23:20)
[2022-10-13 21:27] LABS: CALCIUM, SERUM 8.9 mg/dL (8.5-10.1); CREATININE 1.7 mg/dL (0.6-1.3); POTASSIUM 4.6 mmol/L (3.5-5.1)
[2022-10-13 21:30] LABS: PHOSPHORUS 4.6 mg/dL (2.5-4.9)
[2022-10-13] MEDS ORDERED: IV NS 0.9% 250 ML IV PRN (21:30)
[2022-10-13 21:31] LABS: MAGNESIUM 2.1 mg/dL (1.8-2.4)
[2022-10-13 21:44] VITALS: BP 175/97
[2022-10-13] MEDS: LEVETIRACETAM (500MG) 500 MG in IV NS 0.9% 100 ML IV SCH (21:46)
[2022-10-13 22:03] VITALS: BP 181/98
[2022-10-13 22:28] LABS: CALCIUM, SERUM 8.6 mg/dL (8.5-10.1); CREATININE 1.6 mg/dL (0.6-1.3); MAGNESIUM 1.9 mg/dL (1.8-2.4); PHOSPHORUS 3.9 mg/dL (2.5-4.9); POTASSIUM 3.8 mmol/L (3.5-5.1)
--- NOTE | 2022-10-13 22:28 | NUR ---
ICU/RN: LEFT AC IV INFILTRATION. CATH REMOVED TIP INTACT. SITE BENIGN. DRESSING APPLIED. IVF STOPPED. CLERICAL ORDER FILLER WILL ATTEMPT NEW LINE PLACEMENT.
[2022-10-13 23:02] VITALS: BP 137/86
[2022-10-14] VITALS (31 sets, daily range): BP systolic 104–153; BP diastolic 53–119
[2022-10-14] MEDS: BLOOD SUGAR DIAGNOSTIC 1 EACH STRIP IN SCH ×19 (00:07→23:33)
[2022-10-14 00:43] LABS: CALCIUM, SERUM 8.9 mg/dL (8.5-10.1); CREATININE 1.6 mg/dL (0.6-1.3)
[2022-10-14 00:51] LABS: MAGNESIUM 1.9 mg/dL (1.8-2.4); PHOSPHORUS 4.1 mg/dL (2.5-4.9)
[2022-10-14 05:05] LABS: BASOPHILS # (AUTO) 0.1 K/uL (0.0-0.2); BASOPHILS % (AUTO) 0.5 % (0.0-2.0); EOSINOPHILS % (AUTO) 0.1 % (0.0-6.0); HEMATOCRIT 39 % (39-51); HEMOGLOBIN 12.7 g/dL (13.5-17.5); LYMPHOCYTES # (AUTO) 1.6 K/uL (0.8-4.8); MEAN CORPUSCULAR HGB CONC 33 g/dl (31.0-36.0); MEAN CORPUSCULAR VOLUME 80 fL (80-96); MONOCYTES # (AUTO) 0.6 K/uL (0.1-1.30); MONOCYTES % (AUTO) 4.9 % (2.0-12.0); NEUTROPHILS # (AUTO) 10.1 K/uL (1.8-8.9); NEUTROPHILS % (AUTO) 81.5 % (43.0-81.0); PLATELET COUNT (AUTO) 201 K/uL (150-450); WHITE BLOOD COUNT (AUTO) 12.4 K/uL (4.3-11.0)
[2022-10-14 05:13] LABS: CALCIUM, SERUM 8.7 mg/dL (8.5-10.1); CREATININE 1.4 mg/dL (0.6-1.3); MAGNESIUM 1.8 mg/dL (1.8-2.4); PHOSPHORUS 2.2 mg/dL (2.5-4.9)
--- NOTE | 2022-10-14 07:44 | NUR ---
RECIEVE THE PATIENT ON ROOM AIR AWAKE ALERT TO HIS NAME MOVES ALL EXTRIMITIES SR ON MONITOR TEMP 99.1 AT THIS TIME HAS IVFLUID NS 125 ML PER HOUR ,IVSITE IN RT HAND ,SITE CLEAR VOIDS WITH HELP STANDING UP
--- NOTE | 2022-10-14 07:57 | NUR ---
PT ON INSULIN GTT AND ACCU CHECK WILL BE DONE Q I HOUR
[2022-10-14] MEDS: LEVETIRACETAM (500MG) 500 MG in IV NS 0.9% 100 ML IV SCH ×2 (08:44→21:10)
[2022-10-14] MEDS: PANTOPRAZOLE 40 MG VIAL IV SCH (08:44)
[2022-10-14] MEDS ORDERED: IV D5/0.45 NACL 1,000 ML IV PRN (09:30)
[2022-10-14] MEDS ORDERED: NEUTRA PHOS 1 POWD.PACKET PO ONE (11:00)
[2022-10-14 11:20] LABS: CALCIUM, SERUM 7.9 mg/dL (8.5-10.1); CREATININE 1.4 mg/dL (0.6-1.3); POTASSIUM 3.3 mmol/L (3.5-5.1)
[2022-10-14] MEDS ORDERED: INSULIN REGULAR, HUMAN 100 UNIT/ML 3 ML VIAL SQ PRN (12:00)
[2022-10-14] MEDS ORDERED: POTASSIUM CL. PREMIX PERIPHER. 50 ML IV SCH (12:00)
[2022-10-14] MEDS ORDERED: INSULIN GLARGINE, 100 UNIT/ML CARTRIDGE SQ SCH (12:00)
[2022-10-14] MEDS ORDERED: DEXTROSE 50%-WATER 50 ML DISP.SYRIN IV PRN (12:00)
[2022-10-14] MEDS ORDERED: *INSULIN REGULAR(HUMULIN R)HUM 100 UNIT/ML VIAL SQ PRN (12:00)
[2022-10-14] MEDS ORDERED: POTASSIUM CHLORIDE 20 MEQ TAB.PRT.SR PO ONE (14:00)
[2022-10-14] MEDS ORDERED: POTASSIUM CHLORIDE 10 MEQ TABLET.SA PO ONE (14:00)
[2022-10-14 15:32] LABS: CREATININE 1.5 mg/dL (0.6-1.3); POTASSIUM 3.9 mmol/L (3.5-5.1)
[2022-10-14] MEDS: POTASSIUM CHLORIDE 20 MEQ TAB.PRT.SR PO SCH ×2 (15:49→16:44)
[2022-10-14] MEDS: IV 1/2NS 1000 ML 1,000 ML IV PRN ×2 (16:38→21:03)
[2022-10-14] MEDS: INSULIN REGULAR, HUMAN 100 UNIT in IV NS 0.9% 99 ML IV PRN ×2 (16:39)
[2022-10-14] MEDS ORDERED: BLOOD SUGAR DIAGNOSTIC 1 EACH STRIP IN SCH (17:00)
--- NOTE | 2022-10-14 18:26 | NUR ---
PT AWAKE ALERT ORIENTED X2 VOIDS ,ROOM AIR, NO FEVER ,SR ON MONITOR IS ON INSULIN GTT NOW ,ACCU CHECK Q 1 HOUR CONTINIUED ,ON INSULIN GTT 7 UNITS PER HOUR ,BLOOD SUGER AT 1800 WAS 311 BMP WAS DONE AT 1800 , EATS AND DRINKS IV 1/2NS 200 ML PER HOUR RUNNING PER ORDER AT THIS TIME
[2022-10-14 18:48] LABS: CALCIUM, SERUM 8.2 mg/dL (8.5-10.1); CREATININE 1.4 mg/dL (0.6-1.3); POTASSIUM 4.5 mmol/L (3.5-5.1)
--- NOTE | 2022-10-14 19:54 | NUR ---
CONCRETE FLOATER. INITIAL ASSESSMENT. RECEIVED THE PT REST IN BED. AWAKE, ALERT. CONFUSED. OXYGEN 2L VIA NASAL CANNULA SAT 98%. NO ACUTE DISTRESS NOTED. RECORDS MANAGEMENT SPECIALIST SHOWING NSR, HOB ELEVATED. SUPRA PUBIC CATH INTACT. IV LT UPPER ARM MID LINE. IVF D51/2NS @ 75 ML/H. WILL CONTINUE TO MONITOR VITALS, Addendum: 10/14/22 at 1957 by DANIELLA NORTON RN WRONG PATIENT.
--- NOTE | 2022-10-14 19:58 | NUR ---
CHAIRPERSON ANESTHESIOLOGY. INITIAL ASSESSMENT. RECEIVED THE PT REST IN BED. AWAKE. ALERT, CONFUSED. HOB ELEVATED. PT IS ROOM AIR. SAT 98%, NO ACUTE DISTRESS NOTED. TOOL DESIGN DRAFTSPERSON SHOWING NSR. IV RT AND LT HAND 20G, IVF 1/2 NS 200 ML/H. WILL CONTINUE TO MONITOR VITALS.
[2022-10-14] MEDS: THIAMINE HCL 100 MG TABLET PO SCH (21:10)
[2022-10-14] MEDS ORDERED: LORAZEPAM INJ 2 MG/ML VIAL IV PRN (22:00)
[2022-10-14 22:35] LABS: CALCIUM, SERUM 8.2 mg/dL (8.5-10.1); CREATININE 1.2 mg/dL (0.6-1.3)
[2022-10-14 22:36] LABS: CREATININE, URINE 37.5 MG/DL (30.0-125.0)
[2022-10-14 22:50] LABS: BILIRUBIN,URINE NEGATIVE (NEGATIVE); COLOR,URINE YELLOW (YELLOW); LEUKOCYTE ESTERASE ,URINE NEGATIVE (NEGATIVE); NITRITE, URINE NEGATIVE (NEGATIVE); PROTEIN,URINE NEGATIVE (NEGATIVE); UGLUCOSE 3+ mg/dL (NEGATIVE); UROBILINOGEN,URINE 0.2 EU/dL (0.2)
[2022-10-14 23:21] LABS: BACTERIA,URINE 1+ /HPF (None Seen); MUCUS,URINE None Seen /LPF (None Seen); RBC,URINE NONE SEEN /HPF (0-2); SQUAMOUS EPITHELIAL CELL,UR 0-2 /HPF (None Seen); WBC,URINE NONE SEEN /HPF (0-3)
[2022-10-15] VITALS (25 sets, daily range): BP systolic 97–172; BP diastolic 60–97
[2022-10-15] MEDS: BLOOD SUGAR DIAGNOSTIC 1 EACH STRIP IN SCH ×13 (00:39→21:13)
[2022-10-15 02:49] LABS: CALCIUM, SERUM 8.2 mg/dL (8.5-10.1); CREATININE 1.2 mg/dL (0.6-1.3)
--- NOTE | 2022-10-15 03:34 | NUR ---
AIRCRAFT ELECTRICAL SYSTEMS SPECIALIST. AM CARE GIVEN. REMAINING SAME IV NS 200 ML/H. HOB ELEVATED, FAUSTO WRIST RESTRAINT CHECKED AND RELEASED, NO INJURY OR REDNESS NOTED.WALL WASHER SHOWING NSR. IV RT HAND 20G. INSULIN 7 UNITS/H .HOB ELEVATED. WILL CONTINUE TO MONITOR VITALS.
[2022-10-15] MEDS: IV 1/2NS 1000 ML 1,000 ML IV PRN (05:23)
[2022-10-15 06:48] LABS: CALCIUM, SERUM 8.6 mg/dL (8.5-10.1); PHOSPHORUS 2.5 mg/dL (2.5-4.9); POTASSIUM 3.9 mmol/L (3.5-5.1)
[2022-10-15] MEDS: LEVETIRACETAM (500MG) 500 MG in IV NS 0.9% 100 ML IV SCH (08:15)
[2022-10-15] MEDS: INSULIN REGULAR, HUMAN 100 UNIT in IV NS 0.9% 99 ML IV PRN ×2 (08:26)
[2022-10-15] MEDS: PANTOPRAZOLE 40 MG VIAL IV SCH (08:54)
--- NOTE | 2022-10-15 09:17 | NUR ---
LATE ENTRY: DR. NEAL WAS NOTIFIED OF THE RECENT BLOOD [id number] FOR O900AM READING ON 10/15/22.
[2022-10-15] MEDS ORDERED: IV D5/0.45 NACL 1,000 ML IV SCH (09:30)
[2022-10-15 10:25] LABS: CALCIUM, SERUM 8.4 mg/dL (8.5-10.1); CREATININE 0.9 mg/dL (0.6-1.3); POTASSIUM 3.5 mmol/L (3.5-5.1)
--- NOTE | 2022-10-15 10:45 | NUR ---
DR NEAL WAS NOTIFIED OF THE RECENT BMP RESULTS, MD WITH NEW ORDERS NOTED TO D/C INSULIN DRIP, D5 1/2 NS AT 50ML/HR; AGGRESSIVE INSULIN SLIDING SCALE, LANTUS AND BMP RECHECK, ALL ORDERS NOTED AND WILL CARRY OUT. CHARGE NURSE-IRMA OSBORNE
[2022-10-15] MEDS ORDERED: DEXTROSE 50%-WATER 50 ML DISP.SYRIN IV PRN (11:00)
[2022-10-15] MEDS: IV D5/0.45 NACL 1,000 ML IV SCH (11:14)
[2022-10-15] MEDS ORDERED: INSULIN GLARGINE, 100 UNIT/ML CARTRIDGE SQ SCH ×2 (11:30→21:00)
[2022-10-15] MEDS: INSULIN REGULAR, HUMAN 100 UNIT/ML 3 ML VIAL SQ PRN ×3 (12:18→21:12)
--- NOTE | 2022-10-15 19:15 | NUR ---
Pt is noted in bed responsive but uncooperative with call light in reach and fall precaution sin place as report is received from the off going nurse. Sinus Rhythm on the Tele monitor, Diminished Lungs sound with 02 2Liters Nasal Cannula and skin dry, warm and intact. Pt is noted with Condom Cath and Bilateral soft wrist Restraints as he try pulling out medical lines. Pt care continue as he will be monitor closely.
[2022-10-15 20:45] LABS: CALCIUM, SERUM 8.7 mg/dL (8.5-10.1); CREATININE 1.3 mg/dL (0.6-1.3); POTASSIUM 4.2 mmol/L (3.5-5.1)
[2022-10-15] MEDS: THIAMINE HCL 100 MG TABLET PO SCH (21:07)
[2022-10-15] MEDS: LEVETIRACETAM (250 MG) 250 MG TABLET PO SCH (21:08)
--- NOTE | 2022-10-15 22:00 | NUR ---
Pt remain full code as Blood Glucose Level report by LAB off 375 and pt is given his schedule 20units off Lantus and 20units off regular Insulin SUBQ per Protocol. Pt care continue as he is been monitor closely.
[2022-10-16] VITALS (16 sets, daily range): BP systolic 121–150; BP diastolic 67–108
--- NOTE | 2022-10-16 00:31 | NUR ---
Pt is resting with call light in reach and fall precautions in place as he remain monitor closely as he try pull off medical Lines and soft wrist Restraints in place.
--- NOTE | 2022-10-16 04:35 | NUR ---
Pt is sleeping after AM care done with Restraints in place as he try pulling out medical Lines. Pt care continue with call light in reach and fall precautions in place with IVF D51/2NS at 50ML/HR therapy in progress
[2022-10-16 05:13] LABS: BASOPHILS # (AUTO) 0.1 K/uL (0.0-0.2); BASOPHILS % (AUTO) 0.7 % (0.0-2.0); EOSINOPHILS % (AUTO) 5.5 % (0.0-6.0); HEMATOCRIT 37 % (39-51); HEMOGLOBIN 11.9 g/dL (13.5-17.5); LYMPHOCYTES # (AUTO) 1.9 K/uL (0.8-4.8); LYMPHOCYTES % (AUTO) 22.2 % (20.0-44.0); MEAN CORPUSCULAR HGB CONC 33 g/dl (31.0-36.0); MEAN CORPUSCULAR VOLUME 84 fL (80-96); MONOCYTES # (AUTO) 0.7 K/uL (0.1-1.30); MONOCYTES % (AUTO) 8.6 % (2.0-12.0); NEUTROPHILS # (AUTO) 5.3 K/uL (1.8-8.9); PLATELET COUNT (AUTO) 161 K/uL (150-450); RED BLOOD CELL COUNT(AUTO) 4.37 MIL/uL (4.5-6.0); WHITE BLOOD COUNT (AUTO) 8.4 K/uL (4.3-11.0)
[2022-10-16 05:29] LABS: CALCIUM, SERUM 8.7 mg/dL (8.5-10.1); CREATININE 0.9 mg/dL (0.6-1.3); MAGNESIUM 1.8 mg/dL (1.8-2.4); PHOSPHORUS 3.2 mg/dL (2.5-4.9); POTASSIUM 3.5 mmol/L (3.5-5.1)
[2022-10-16] MEDS: BLOOD SUGAR DIAGNOSTIC 1 EACH STRIP IN SCH ×4 (07:13→21:45)
[2022-10-16] MEDS: INSULIN REGULAR, HUMAN 100 UNIT/ML 3 ML VIAL SQ PRN ×4 (07:17→21:51)
[2022-10-16] MEDS: IV D5/0.45 NACL 1,000 ML IV SCH (07:18)
--- NOTE | 2022-10-16 07:23 | NUR ---
Pt care continue as report is given to the AM receiving nurse.
[2022-10-16] MEDS: LEVETIRACETAM (250 MG) 250 MG TABLET PO SCH ×2 (08:13→21:45)
[2022-10-16] MEDS: PANTOPRAZOLE 40 MG TABLET.DR PO SCH (08:13)
[2022-10-16] MEDS ORDERED: IV D5/0.45 NACL 1,000 ML IV PRN (08:19)
--- NOTE | 2022-10-16 09:14 | NUR ---
DR NEAL SEEN PATIENT NOW.
[2022-10-16] MEDS: INSULIN GLARGINE, 100 UNIT/ML CARTRIDGE SQ SCH ×2 (09:27→21:50)
--- NOTE | 2022-10-16 11:45 | NUR ---
PATIENT RECEIVED FROM ICU.
--- NOTE | 2022-10-16 11:45 | NUR ---
TRANSFERRED PATIENT TO TELE UNIT RM 101 PER ORDER/PROTOCOL; STABLE VS, TEMP=98.5F ORALLY, BEDSIDE REPORT GIVEN TO SHAHEEN FOR CONTINUITY OF CARE, ALL NEEDS ATTENDED, SAFETY MEASURES IN-PLACE. ALL BELONGINGS/CLOTHINGS HANDED TO SHAHEEN.
--- NOTE | 2022-10-16 12:25 | NUR ---
REMOVED PATIENT FROM BILATERAL SOFT WRIST RESTRAINTS TO TRIAL DISCONTINUATION. WILL CONTINUE TO MONITOR.
--- NOTE | 2022-10-16 13:05 | NUR ---
DISCONTINUED FLUIDS PER MD ORDER
--- NOTE | 2022-10-16 18:42 | NUR ---
RESTAURANT HOURLY TEAM MEMBER CLOSING NOTES PATIENT IN BED RESTING, ALERT AND ORIENTED X3-4. ON ROOM AIR WITH NO S/S OF RESPIRATORY DISTRESS OR SOB AND BREATHING EVEN AND UNLABORED. ON TELE MONITOR READING SR 74. IV ACCESS ON R HAND 20G, INTACT AND PATENT. ALL DUE MEDS GIVEN AND PATIENT KEPT CLEAN AND COMFORTABLE. SAFETY MEASURES IN PLACE WITH BED IN LOWEST AND LOCKED POSITION, SIDE RAILS UP X3, BED ALARM ON, AND BEDSIDE TABLE AND CALL LIGHT WITHIN REACH. WILL ENDORSE TO ONCOMING SHIFT FOR ISHA.
--- NOTE | 2022-10-16 20:00 | NUR ---
PROFESSOR OF CHEMISTRY NOTE PT IN BED AWAKE. A/O X 2, CONFUSED AT TIMES. NO SOB, NO DISTRESS OR DISCOMFORT NOTED. DENIES PAIN. ON TELE SR 73. SL RT HAND # 20 G INTACT AND PATENT. DVT PUMP ON LOWER EXT'S. PT IS NOT ON RESTRAINT AT THIS TIME. REMINDED PT TO USE CALL LIGHT IF NEEDED ANYTHING. SIDE RAILS UP X 2 VSS. CONTINUE TO MONITOR HIM.
[2022-10-16] MEDS: THIAMINE HCL 100 MG TABLET PO SCH (21:45)
[2022-10-17] VITALS: BP 136/73
[2022-10-17 04:00] VITALS: BP 137/73
--- NOTE | 2022-10-17 07:30 | NUR ---
LEAD ELECTRICIAN AM NOTES PATIENT IN BED, AWAKE, ALERT ORIENTED X 3-4. ON ROOM AIR O2 SAT >95%, WITH NO S/S OF RESPIRATORY DISTRESS OR SOB AND BREATHING EVEN AND UNLABORED. SR HR 89 ON MONITOR. DENIES ANY CHEST PAIN/DISCOMFORT. IV ACCESS ON R HAND 20G, FLUSHES WELL, SITE CLEAR. BRP, AMB WITH ASSIST. SKIN INTACT, POC DISCUSSED, VERBALIZED UNDERSTANDING. SAFETY MEASURES IN PLACE WITH BED IN LOWEST AND LOCKED POSITION, SIDE RAILS UP X3, BED ALARM ON, AND BEDSIDE TABLE AND CALL LIGHT WITHIN REACH. WILL CONT TO MONITOR.
[2022-10-17] MEDS: BLOOD SUGAR DIAGNOSTIC 1 EACH STRIP IN SCH ×2 (07:48→12:14)
[2022-10-17 07:53] LABS: CALCIUM, SERUM 8.6 mg/dL (8.5-10.1); CREATININE 0.8 mg/dL (0.6-1.3); POTASSIUM 3.9 mmol/L (3.5-5.1)
[2022-10-17 08:00] VITALS: BP 121/60
[2022-10-17] MEDS: LEVETIRACETAM (250 MG) 250 MG TABLET PO SCH (08:35)
[2022-10-17] MEDS: PANTOPRAZOLE 40 MG TABLET.DR PO SCH (08:35)
[2022-10-17] MEDS: INSULIN REGULAR, HUMAN 100 UNIT/ML 3 ML VIAL SQ PRN ×2 (08:39→12:25)
[2022-10-17] MEDS: INSULIN GLARGINE, 100 UNIT/ML CARTRIDGE SQ SCH (08:41)
--- NOTE | 2022-10-17 09:26 | NUR ---
RN NOTES DUE MEDS GIVEN.
[2022-10-17 12:00] VITALS: BP 138/74
--- NOTE | 2022-10-17 13:45 | NUR ---
RN NOTES PATIENT DISCHARGED TO [facility] TODAY PER MD IN STABLE CONDITION. PROVIDED DC INSTRUCTIONS, HEALTH TEACHINGS AND MED RECON LIST. RT HAND IV ACCESS REMOVED, CATH TIP COMPLETE, APPLIED PRESSURES AND DRESSING. NO BLEEDING. PATIENT TO FOLLOW UP WITH PCP AND WILL MAKE OWN SCHEDULE. ALL BELONGINGS CHECKED AND RETURNED. ALL PAPER WORKS SIGNED. PICKED UP BY [facility] AND WILL TRANSPORT TO FACILITY VIA AMBULANCE.
== END 2022-10-17 13:57 | DRG 637 ==
LOC: ER 18:03 → ICU 20:24 → TELE1 10-16 11:05
PROVIDERS: ADMIT Nurse Practitioner Acute Care; ATTEND Internal Medicine
DX: E11.10 Type 2 diabetes mellitus with ketoacidosis without coma (principal); G93.41 Metabolic encephalopathy; N17.0 Acute kidney failure with tubular necrosis; E87.1 Hypo-osmolality and hyponatremia; K86.1 Other chronic pancreatitis; E86.1 Hypovolemia; K70.9 Alcoholic liver disease, unspecified; Z20.822 Contact with and (suspected) exposure to COVID-19; I11.0 Hypertensive heart disease with heart failure; K74.60 Unspecified cirrhosis of liver; G40.909 Epilepsy, unspecified, not intractable, without status epilepticus; M10.9 Gout, unspecified; Z79.4 Long term (current) use of insulin; Z79.899 Other long term (current) drug therapy; Z79.84 Long term (current) use of oral hypoglycemic drugs; Z87.19 Personal history of other diseases of the digestive system; F25.9 Schizoaffective disorder, unspecified; Z68.29 Body mass index [BMI] 29.0-29.9, adult; E66.9 Obesity, unspecified; I50.9 Heart failure, unspecified; E87.6 Hypokalemia; E78.5 Hyperlipidemia, unspecified; Z96.649 Presence of unspecified artificial hip joint; I25.10 Atherosclerotic heart disease of native coronary artery without angina pectoris; F32.A Depression, unspecified; H16.9 Unspecified keratitis; F10.90 Alcohol use, unspecified, uncomplicated; Y90.0 Blood alcohol level of less than 20 mg/100 ml
CPT/HCPCS: 36415; 70450-TC; 71045-TC; 80048-TC; 80061-TC; 80076-TC; 81001; 82140-TC; 82570-TC; 82962-TC; 83605-TC; 83690-TC; 83735-TC; 84100-TC; 84300-TC; 84443-TC; 85025-TC; 87081-TC; A4223; A4349; C9113; C9803; G0378; G0480; J1815; J1953; J2060; J3411; J3480; J3490; J7030; J7050; J7060

== ENCOUNTER 2024-09-13 13:05 | Inpatient (IN) | payer MEDICARE, OTHER ==
[2024-09-13] VITALS (17 sets, daily range): BP systolic 99–126; BP diastolic 42–67; TEMP 96; O2SAT 96–100
[~2024-09-13] VITALS: Ht 162.6 cm; Wt 82.6 kg
[~2024-09-13 13:05] MED LIST changes: +ACET325C7 PO; -AMLO-212 PO; -ASCO-340 PO; -ATOR10TA PO; -BISA-79 PO; -CANA100T PO; -CARV12.5 PO; +CARV3.122 PO; -CHOL100043 PO; -CYAN-51 PO; -ESCI10TA PO; -FOLI0.4T6 PO; -FOLI1TAB26 PO; +INSU100I30 SQ; -INSU100V11 SQ; +INSU100V27 SQ; -Insulin Glargine,Hum SQ; -MAGN400T26 PO; -METF-881 PO; -QUET25TA PO; -SPIR25TA PO; -THIA100T88 PO; -ZINC1CAP2 PO
[2024-09-13] MEDS ORDERED: FUROSEMIDE 20 MG/2 ML VIAL ONE (13:19)
[2024-09-13] MEDS ORDERED: SODIUM BICARBONATE SYR 50 MEQ/50 ML DISP.SYRIN ONE (13:20)
[2024-09-13] MEDS ORDERED: CALCIUM CHLORIDE 1,000 MG/10 ML DISP.SYRIN ONE (13:20)
[2024-09-13] MEDS: CALCIUM CHLORIDE 1,000 MG/10 ML DISP.SYRIN IV ONE (13:55)
[2024-09-13] MEDS: IV NS 0.9% 1,000 ML BAG IV ONE (13:55)
[2024-09-13] MEDS: SODIUM BICARBONATE SYR 50 MEQ/50 ML DISP.SYRIN IV ONE ×2 (13:56→15:52)
[2024-09-13] MEDS: FUROSEMIDE 40 MG/4 ML VIAL IV ONE (13:56)
[2024-09-13] MEDS: ALBUTEROL FS 2.5 MG/3 ML VIAL.NEB NEB ONE (14:05)
[2024-09-13] MEDS ORDERED: ALBUTEROL FS 2.5 MG/3 ML VIAL.NEB ONE (14:07)
[2024-09-13 14:17] LABS: BASOPHILS # (AUTO) 0.1 K/uL (0.0-0.2); BASOPHILS % (AUTO) 0.6 % (0.0-2.0); EOSINOPHILS # (AUTO) 0.8 K/uL (0.0-0.7); EOSINOPHILS % (AUTO) 7.6 % (0.0-6.0); HEMATOCRIT 38 % (39-51); HEMOGLOBIN 12.6 g/dL (13.5-17.5); LYMPHOCYTES # (AUTO) 1.1 K/uL (0.8-4.8); LYMPHOCYTES % (AUTO) 10.6 % (20.0-44.0); MEAN CORPUSCULAR HEMOGLOBIN 29 PG (26.0-33.0); MEAN CORPUSCULAR HGB CONC 33 g/dl (31.0-36.0); MEAN CORPUSCULAR VOLUME 86 fL (80-96); MONOCYTES # (AUTO) 0.7 K/uL (0.1-1.30); MONOCYTES % (AUTO) 7.3 % (2.0-12.0); NEUTROPHILS # (AUTO) 7.5 K/uL (1.8-8.9); NEUTROPHILS % (AUTO) 73.9 % (43.0-81.0); PLATELET COUNT (AUTO) 182 K/uL (150-450); RED CELL DISTRIBUTION WIDTH 14.4 % (11.5-15.0); WHITE BLOOD COUNT (AUTO) 10.2 K/uL (4.3-11.0)
[2024-09-13 14:26] LABS: ALBUMIN 3.6 g/dL (3.4-5.0); BILIRUBIN,DIRECT 0.1 mg/dL (0.0-0.2); BILIRUBIN,TOTAL 0.4 mg/dL (0.2-1.0); CALCIUM, SERUM 9.5 mg/dL (8.5-10.1); CREATININE 4.2 mg/dL (0.6-1.3); TOTAL PROTEIN, SERUM 8.1 g/dL (6.4-8.2)
[2024-09-13] MEDS: INSULIN REGULAR, HUMAN 100 UNIT/ML 10 ML VIAL IV ONE (15:26)
[2024-09-13] MEDS: DEXTROSE 50%-WATER 50 ML DISP.SYRIN IV ONE (15:36)
[2024-09-13] MEDS ORDERED: AMLO-212 PO (15:48)
[2024-09-13] MEDS ORDERED: FURO40TA5 PO (15:48)
[2024-09-13] MEDS ORDERED: INSU100I26 SQ (15:48)
[2024-09-13] MEDS ORDERED: FERR325T24 PO (15:48)
[2024-09-13] MEDS ORDERED: METF-867 PO (15:48)
[2024-09-13] MEDS ORDERED: EMPA25TA PO (15:48)
[2024-09-13] MEDS ORDERED: LIPA1CAP9 PO (15:48)
[2024-09-13] MEDS ORDERED: LOSA100T31 PO (15:48)
[2024-09-13] MEDS ORDERED: FOLI0.8T3 PO (15:48)
[2024-09-13] MEDS ORDERED: SPIR50TA5 PO (15:48)
[2024-09-13] MEDS ORDERED: POTA-88 PO (15:48)
[2024-09-13] MEDS ORDERED: CYAN-51 PO (15:48)
[2024-09-13] MEDS ORDERED: BISA5TAB10 PO (15:48)
[2024-09-13] MEDS ORDERED: HYDR30CR77 RC (15:48)
[2024-09-13] MEDS ORDERED: ESCI10TA (15:48)
[2024-09-13] MEDS ORDERED: ASPI-1169 PO (15:48)
[2024-09-13] MEDS ORDERED: ASCO500T10 PO (15:48)
[2024-09-13] MEDS ORDERED: ACET-2812 PO (15:48)
[2024-09-13] MEDS ORDERED: THIA100T68 PO (15:48)
[2024-09-13] MEDS ORDERED: MAGN400T52 PO (15:48)
[2024-09-13] MEDS ORDERED: CHOL500062 PO (15:48)
[2024-09-13] MEDS ORDERED: QUET100T PO (15:48)
[2024-09-13] MEDS ORDERED: METF-881 PO (15:48)
[2024-09-13] MEDS ORDERED: OMEG1CAP55 PO (15:48)
[2024-09-13] MEDS ORDERED: ATOR40TA PO (15:48)
[2024-09-13 16:28] LABS: INR 0.98 (0.91-1.10); PROTHROMBIN TIME 10.4 SECS (9.2-11.1)
[2024-09-13] MEDS ORDERED: LIDOCAINE 2% JEL UROJET 10 ML MM ONE (16:40)
[2024-09-13 16:50] LABS: APPEARANCE,URINE CLEAR (CLEAR); BILIRUBIN,URINE NEGATIVE (NEGATIVE); BLOOD, URINE TRACE-INTA Ery/uL (NEGATIVE); COLOR,URINE YELLOW (YELLOW); KETONES,URINE NEGATIVE (NEGATIVE); LEUKOCYTE ESTERASE ,URINE NEGATIVE (NEGATIVE); NITRITE, URINE NEGATIVE (NEGATIVE); PROTEIN,URINE NEGATIVE (NEGATIVE); UGLUCOSE 3+ mg/dL (NEGATIVE); UROBILINOGEN,URINE 0.2 EU/dL (0.2)
[2024-09-13 16:56] LABS: ABG BASE EXCESS -7.3 mmol/L (-2.0-3.0); ABG PH 7.404 (7.350-7.450); ABG PO2 77.5 mmHg (83.0-108.0); ABG TOTAL HEMOGLOBIN 12.3 G/dL (13.5-17.5); COHb 0.2 % (0.5-1.5); MetHb 0.1 % (0.0-1.5); O2Hb 95.7 % (94.0-97.0); SITE, ABG LEFT RADIAL
[2024-09-13 17:03] LABS: CREATININE, URINE < 13.0 MG/DL (30.0-125.0); URINE SODIUM, RANDOM 91 mmol/l (40-220); URINE TOTAL PROTEIN 3.4 mg/dL (0-11.9)
[2024-09-13 17:25] LABS: ADD URINE CULTURE NO; BACTERIA,URINE None seen /HPF (None Seen); WBC,URINE NONE SEEN /HPF (0-3)
[2024-09-13 17:26] LABS: SQUAMOUS EPITHELIAL CELL,UR Rare /HPF (None Seen)
[2024-09-13] MEDS ORDERED: ONDANSETRON HCL/PF 4 MG/2 ML VIAL IVP PRN (17:30)
[2024-09-13] MEDS ORDERED: hydrALAZINE HCL IV 20 MG VIAL IV PRN (17:30)
[2024-09-13 17:42] LABS: CALCIUM, SERUM 9.7 mg/dL (8.5-10.1); CREATININE 3.9 mg/dL (0.6-1.3)
[2024-09-13 17:44] LABS: POTASSIUM 6.8 mmol/L (3.5-5.1)
[2024-09-13] MEDS: BLOOD SUGAR DIAGNOSTIC 1 EACH STRIP IN SCH (17:46)
[2024-09-13 18:02] LABS: EOSINOPHIL,URINE None Seen
[2024-09-13] MEDS: INSULIN GLARGINE, 100 UNIT/ML CARTRIDGE SQ SCH (19:05)
[2024-09-13] MEDS: Sodium Bicarbonate 100 MEQ in IV 1/2NS 1000 ML 1,000 ML IV SCH (19:06)
[2024-09-13] MEDS: QUETIAPINE FUMARATE 100 MG TABLET PO SCH (21:37)
[2024-09-13] MEDS: ATORVASTATIN 40 MG TABLET PO SCH (21:37)
[2024-09-14] VITALS (17 sets, daily range): BP systolic 88–123; BP diastolic 50–71; TEMP 97.8–98.8; O2SAT 91–99
[2024-09-14 05:06] LABS: BASOPHILS % (AUTO) 0.5 % (0.0-2.0); EOSINOPHILS # (AUTO) 0.6 K/uL (0.0-0.7); EOSINOPHILS % (AUTO) 7.8 % (0.0-6.0); HEMATOCRIT 32 % (39-51); HEMOGLOBIN 11.1 g/dL (13.5-17.5); LYMPHOCYTES # (AUTO) 1.2 K/uL (0.8-4.8); MEAN CORPUSCULAR HEMOGLOBIN 29 PG (26.0-33.0); MEAN CORPUSCULAR HGB CONC 34 g/dl (31.0-36.0); MEAN CORPUSCULAR VOLUME 84 fL (80-96); MONOCYTES # (AUTO) 0.8 K/uL (0.1-1.30); MONOCYTES % (AUTO) 10.6 % (2.0-12.0); NEUTROPHILS % (AUTO) 65.1 % (43.0-81.0); PLATELET COUNT (AUTO) 129 K/uL (150-450); RED BLOOD CELL COUNT(AUTO) 3.87 MIL/uL (4.5-6.0); RED CELL DISTRIBUTION WIDTH 14.6 % (11.5-15.0); WHITE BLOOD COUNT (AUTO) 7.6 K/uL (4.3-11.0)
[2024-09-14 05:25] LABS: ALBUMIN 2.9 g/dL (3.4-5.0); BILIRUBIN,TOTAL 0.2 mg/dL (0.2-1.0); CREATININE 2.5 mg/dL (0.6-1.3); MAGNESIUM 2.3 mg/dL (1.8-2.4); PHOSPHORUS 3.9 mg/dL (2.5-4.9); POTASSIUM 4.7 mmol/L (3.5-5.1); TOTAL PROTEIN, SERUM 6.5 g/dL (6.4-8.2)
[2024-09-14] MEDS: PANTOPRAZOLE 40 MG TABLET.DR PO SCH (07:20)
[2024-09-14] MEDS: CARVEDILOL 3.125 MG TABLET PO SCH (07:20)
[2024-09-14] MEDS: DEXTROSE 50%-WATER 50 ML DISP.SYRIN IV PRN (07:25)
[2024-09-14] MEDS: FERROUS SULFATE (325 MG) 325 MG/TAB TABLET PO SCH (08:38)
[2024-09-14] MEDS: LEVETIRACETAM (250 MG) 250 MG TABLET PO SCH (08:39)
[2024-09-14] MEDS: ASPIRIN 81 MG TAB.CHEW PO SCH (08:39)
[2024-09-14] MEDS: AMLODIPINE BESYLATE 5 MG TABLET PO SCH (08:39)
[2024-09-14] MEDS: THIAMINE HCL 100 MG TABLET PO SCH (08:39)
[2024-09-14] MEDS: FOLIC ACID 1 MG TABLET PO SCH (08:39)
[2024-09-14] MEDS: ESCITALOPRAM OXALATE (10 MG) 10 MG TABLET PO SCH (08:39)
[2024-09-14] MEDS: EMPAGLIFLOZIN 25 MG TABLET PO SCH (08:42)
[2024-09-14] MEDS: INSULIN GLARGINE, 100 UNIT/ML CARTRIDGE SQ SCH ×2 (08:44→17:00)
[2024-09-14] MEDS: HEPARIN SODIUM, PORCINE 5000 UNITS/1 ML VIAL SQ SCH (08:44)
[2024-09-14] MEDS ORDERED: EMPAGLIFLOZIN 25 MG TABLET PO SCH (09:00)
[2024-09-14] MEDS: IV NS 0.9% 1,000 ML IV PRN (10:33)
[2024-09-14] MEDS: INSULIN REGULAR, HUMAN 100 UNIT/ML 3 ML VIAL SQ PRN (11:24)
[2024-09-14 16:20] LABS: CALCIUM, SERUM 8.9 mg/dL (8.5-10.1); CREATININE 2.6 mg/dL (0.6-1.3)
[2024-09-14] MEDS: *INSULIN REGULAR(HUMULIN R)HUM 100 UNIT/ML VIAL SQ PRN (22:46)
[2024-09-15] VITALS: BP 96/55; TEMP 98.3; O2SAT 98
[2024-09-15 04:00] VITALS: BP 105/55; TEMP 97.5; O2SAT 98
[2024-09-15 05:52] LABS: BASOPHILS % (AUTO) 0.5 % (0.0-2.0); EOSINOPHILS # (AUTO) 0.8 K/uL (0.0-0.7); EOSINOPHILS % (AUTO) 7.9 % (0.0-6.0); HEMATOCRIT 36 % (39-51); HEMOGLOBIN 11.8 g/dL (13.5-17.5); LYMPHOCYTES # (AUTO) 1.2 K/uL (0.8-4.8); LYMPHOCYTES % (AUTO) 12.3 % (20.0-44.0); MEAN CORPUSCULAR HEMOGLOBIN 29 PG (26.0-33.0); MEAN CORPUSCULAR HGB CONC 33 g/dl (31.0-36.0); MEAN CORPUSCULAR VOLUME 86 fL (80-96); MONOCYTES # (AUTO) 1.3 K/uL (0.1-1.30); NEUTROPHILS # (AUTO) 6.6 K/uL (1.8-8.9); NEUTROPHILS % (AUTO) 66.3 % (43.0-81.0); PLATELET COUNT (AUTO) 131 K/uL (150-450); RED BLOOD CELL COUNT(AUTO) 4.14 MIL/uL (4.5-6.0); RED CELL DISTRIBUTION WIDTH 14.8 % (11.5-15.0)
[2024-09-15 07:01] LABS: CREATININE 2.4 mg/dL (0.6-1.3); MAGNESIUM 2.1 mg/dL (1.8-2.4); PHOSPHORUS 4.3 mg/dL (2.5-4.9); POTASSIUM 4.2 mmol/L (3.5-5.1)
[2024-09-15 08:00] VITALS: BP 137/62; TEMP 98; O2SAT 98
[2024-09-15] MEDS: IV D5/ 0.9% NACL 1,000 ML IV SCH (08:24)
[2024-09-15] MEDS: INSULIN GLARGINE, 100 UNIT/ML CARTRIDGE SQ SCH (09:00)
[2024-09-15] MEDS: MORPHINE SULFATE INJ 4 MG/ML DISP.SYRIN IV PRN (10:07)
[2024-09-15 12:00] VITALS: BP 127/65; TEMP 98; O2SAT 98
[2024-09-15 16:00] VITALS: BP 135/81; TEMP 98; O2SAT 98
[2024-09-15 18:07] LABS: HEMOGLOBIN 12.4 g/dL (13.5-17.5)
[2024-09-15 20:00] VITALS: BP 144/42; TEMP 98.8; O2SAT 91
[2024-09-16] VITALS: BP 125/60; TEMP 102.2; O2SAT 97
[2024-09-16] MEDS: ACETAMINOPHEN 325 MG TABLET PO PRN (00:01)
[2024-09-16 04:00] VITALS: BP 139/64; TEMP 98.2; O2SAT 96
[2024-09-16 07:11] LABS: CALCIUM, SERUM 8.8 mg/dL (8.5-10.1); CREATININE 2.5 mg/dL (0.6-1.3); MAGNESIUM 1.6 mg/dL (1.8-2.4); PHOSPHORUS 2.2 mg/dL (2.5-4.9); POTASSIUM 3.7 mmol/L (3.5-5.1)
[2024-09-16 07:29] LABS: HEMATOCRIT 34 % (39-51); HEMOGLOBIN 11.2 g/dL (13.5-17.5); LYMPHOCYTES # (AUTO) 0.3 K/uL (0.8-4.8); LYMPHOCYTES % (AUTO) 1.6 % (20.0-44.0); MEAN CORPUSCULAR HEMOGLOBIN 29 PG (26.0-33.0); MEAN CORPUSCULAR HGB CONC 34 g/dl (31.0-36.0); MEAN CORPUSCULAR VOLUME 86 fL (80-96); MONOCYTES # (AUTO) 0.8 K/uL (0.1-1.30); MONOCYTES % (AUTO) 4.3 % (2.0-12.0); NEUTROPHILS # (AUTO) 17.5 K/uL (1.8-8.9); NEUTROPHILS % (AUTO) 94.1 % (43.0-81.0); PLATELET COUNT (AUTO) 88 K/uL (150-450); RED BLOOD CELL COUNT(AUTO) 3.91 MIL/uL (4.5-6.0); RED CELL DISTRIBUTION WIDTH 14.5 % (11.5-15.0); WHITE BLOOD COUNT (AUTO) 18.6 K/uL (4.3-11.0)
[2024-09-16 08:00] VITALS: BP 115/69; TEMP 99; O2SAT 98
[2024-09-16 08:07] LABS: PTH, INTACT 26 pg/mL (15-65)
[2024-09-16] MEDS: MAGNESIUM OXIDE 400 MG TABLET PO ONE (10:30)
[2024-09-16 10:57] LABS: LYMPHOCYTES % (MANUAL) 2 % (16-48); MONOCYTES % (MANUAL) 2 % (0-11.0); NEUTROPHILS % (MANUAL) 96 (42-76); PLATELET ESTIMATE DECREASED
[2024-09-16 12:00] VITALS: BP 121/60; TEMP 102.9; O2SAT 98
[2024-09-16] MEDS: POTASSIUM PHOSPHATE MM 7.5 MMOL in IV NS 0.9% 100 ML IV SCH ×2 (13:14→19:26)
[2024-09-16] MEDS: K PHOS NEUTRAL 250 MG TABLET PO ONE (15:33)
[2024-09-16 16:00] VITALS: BP 93/52; TEMP 100.8; O2SAT 95
[2024-09-16] MEDS: LIPASE/PROTEASE/AMYLASE 1 EACH CAPSULE.DR PO SCH (17:03)
[2024-09-16] MEDS: INSULIN GLARGINE, 100 UNIT/ML CARTRIDGE SQ SCH (17:24)
[2024-09-16 20:00] VITALS: BP 94/54; TEMP 99; O2SAT 98
[2024-09-17] VITALS: BP 112/59; TEMP 98.2; O2SAT 96
[2024-09-17 04:00] VITALS: BP 112/50; TEMP 98.4; O2SAT 96
[2024-09-17 04:07] LABS: HEPATITIS B CORE AB, IgM Negative (Negative); HEPATITIS B CORE AB, TOTAL Negative (Negative); HEPATITIS B SURFACE AB Non Reactive (.)
[2024-09-17 06:39] LABS: CALCIUM, SERUM 7.7 mg/dL (8.5-10.1); CREATININE 2.2 mg/dL (0.6-1.3); MAGNESIUM 1.5 mg/dL (1.8-2.4); PHOSPHORUS 3.5 mg/dL (2.5-4.9); POTASSIUM 3.9 mmol/L (3.5-5.1)
[2024-09-17 08:00] VITALS: BP 107/47; TEMP 98.9; O2SAT 96
[2024-09-17] MEDS: MAGNESIUM OXIDE 400 MG TABLET PO ONE (09:20)
[2024-09-17 09:42] LABS: BASOPHILS # (AUTO) 0.1 K/uL (0.0-0.2); BASOPHILS % (AUTO) 0.5 % (0.0-2.0); HEMATOCRIT 30 % (39-51); HEMOGLOBIN 9.9 g/dL (13.5-17.5); LYMPHOCYTES # (AUTO) 0.4 K/uL (0.8-4.8); MEAN CORPUSCULAR HEMOGLOBIN 28 PG (26.0-33.0); MEAN CORPUSCULAR HGB CONC 33 g/dl (31.0-36.0); MEAN CORPUSCULAR VOLUME 86 fL (80-96); MONOCYTES # (AUTO) 0.5 K/uL (0.1-1.30); MONOCYTES % (AUTO) 5.1 % (2.0-12.0); NEUTROPHILS # (AUTO) 8.6 K/uL (1.8-8.9); NEUTROPHILS % (AUTO) 90.4 % (43.0-81.0); PLATELET COUNT (AUTO) 72 K/uL (150-450); RED BLOOD CELL COUNT(AUTO) 3.47 MIL/uL (4.5-6.0); RED CELL DISTRIBUTION WIDTH 14.6 % (11.5-15.0); WHITE BLOOD COUNT (AUTO) 9.6 K/uL (4.3-11.0)
[2024-09-17 15:16] LABS: LYMPHOCYTES % (MANUAL) 2 % (16-48); MONOCYTES % (MANUAL) 2 % (0-11.0); NEUTROPHILS % (MANUAL) 96 (42-76); PLATELET ESTIMATE DECREASED
[2024-09-17 15:17] LABS: ANISOCYTOSIS 1+
[2024-09-17 16:00] VITALS: BP 105/56; TEMP 100.4; O2SAT 92
[2024-09-17] MEDS ORDERED: PIPERACI/TAZO 3.375GM/D5W 50ML PB IV ONE (23:30)
[2024-09-17] MEDS ORDERED: VANCOMYCIN 1 GM /D5W 250 ML PB IV ONE (23:31)
[2024-09-17] MEDS: VANCOMYCIN 1.75 GM in IV NS 0.9% 500 ML IV ONE (23:41)
[2024-09-17] MEDS: PIPERACILLIN /TAZOBACTAM 3.375 G in IV NS 0.9% 50 ML IV SCH (23:46)
[2024-09-18] VITALS: BP 93/47; TEMP 99.4; O2SAT 90
[2024-09-18] MEDS ORDERED: PIPERACI/TAZO 3.375GM/D5W 50ML PB IV ONE (06:02)
[2024-09-18 06:29] LABS: BASOPHILS % (AUTO) 0.4 % (0.0-2.0); EOSINOPHILS % (AUTO) 0.1 % (0.0-6.0); HEMATOCRIT 27 % (39-51); HEMOGLOBIN 9.3 g/dL (13.5-17.5); LYMPHOCYTES # (AUTO) 0.6 K/uL (0.8-4.8); MEAN CORPUSCULAR HEMOGLOBIN 29 PG (26.0-33.0); MEAN CORPUSCULAR HGB CONC 34 g/dl (31.0-36.0); MEAN CORPUSCULAR VOLUME 84 fL (80-96); MONOCYTES % (AUTO) 9.8 % (2.0-12.0); NEUTROPHILS # (AUTO) 8.1 K/uL (1.8-8.9); NEUTROPHILS % (AUTO) 83.7 % (43.0-81.0); PLATELET COUNT (AUTO) 89 K/uL (150-450); RED BLOOD CELL COUNT(AUTO) 3.23 MIL/uL (4.5-6.0); RED CELL DISTRIBUTION WIDTH 14.4 % (11.5-15.0); WHITE BLOOD COUNT (AUTO) 9.7 K/uL (4.3-11.0)
[2024-09-18 06:55] LABS: CALCIUM, SERUM 7.8 mg/dL (8.5-10.1); CREATININE 2.1 mg/dL (0.6-1.3); POTASSIUM 3.8 mmol/L (3.5-5.1)
[2024-09-18 08:00] VITALS: BP 121/60; TEMP 99.7; O2SAT 90
[2024-09-18 08:10] LABS: *SPE ALBUMIN 2.9 g/dL (2.9-4.4); *SPE ALPHA-1-GLOBULIN 0.2 g/dL (0.0-0.4); *SPE ALPHA-2-GLOBULIN 0.8 g/dL (0.4-1.0); *SPE BETA GLOBULIN 0.9 g/dL (0.7-1.3); *SPE GLOBULIN, TOTAL 2.8 g/dL (2.2-3.9); *SPE M-SPIKE Not Observed g/dL (Not Observed); *SPE PROTEIN TOTAL 5.7 g/dL (6.0-8.5); *SPEGAMMA GLOBULIN 0.9 g/dL (0.4-1.8)
[2024-09-18] MEDS: PIPERACILLIN /TAZOBACTAM 3.375 G in IV D5W 100 ML IV SCH (11:32)
[2024-09-18 15:20] LABS: ANISOCYTOSIS 1+; LYMPHOCYTES % (MANUAL) 6 % (16-48); MONOCYTES % (MANUAL) 2 % (0-11.0); NEUTROPHILS % (MANUAL) 92 (42-76); PLATELET ESTIMATE DECREASED
[2024-09-18 16:00] VITALS: BP 108/58; TEMP 99.9; O2SAT 97
[2024-09-18] MEDS: CEFEPIME 2 GM in IV D5W 100 ML IV SCH (17:25)
[2024-09-18 17:59] LABS: APPEARANCE,URINE CLEAR (CLEAR); BILIRUBIN,URINE NEGATIVE (NEGATIVE); BLOOD, URINE 1+ Ery/uL (NEGATIVE); COLOR,URINE YELLOW (YELLOW); KETONES,URINE NEGATIVE (NEGATIVE); LEUKOCYTE ESTERASE ,URINE NEGATIVE (NEGATIVE); NITRITE, URINE NEGATIVE (NEGATIVE); PH,URINE 5.5 (5.0-8.0); PROTEIN,URINE 1+ mg/dl (NEGATIVE); UGLUCOSE 3+ mg/dL (NEGATIVE)
[2024-09-18 18:21] LABS: ADD URINE CULTURE YES; BACTERIA,URINE Many /HPF (None Seen); SQUAMOUS EPITHELIAL CELL,UR Moderate /HPF (None Seen)
[2024-09-18 22:00] VITALS: BP 101/53; TEMP 99.5; O2SAT 95
[2024-09-18] MEDS: VANCOMYCIN 750 MG in IV D5W 250 ML IV SCH (23:17)
[2024-09-19] VITALS: BP 101/53; TEMP 99.5; O2SAT 95
[2024-09-19 06:59] LABS: BASOPHILS # (AUTO) 0.1 K/uL (0.0-0.2); BASOPHILS % (AUTO) 0.6 % (0.0-2.0); EOSINOPHILS # (AUTO) 0.1 K/uL (0.0-0.7); EOSINOPHILS % (AUTO) 0.8 % (0.0-6.0); HEMATOCRIT 25 % (39-51); HEMOGLOBIN 8.6 g/dL (13.5-17.5); LYMPHOCYTES # (AUTO) 0.8 K/uL (0.8-4.8); LYMPHOCYTES % (AUTO) 8.2 % (20.0-44.0); MEAN CORPUSCULAR HEMOGLOBIN 29 PG (26.0-33.0); MEAN CORPUSCULAR HGB CONC 34 g/dl (31.0-36.0); MEAN CORPUSCULAR VOLUME 84 fL (80-96); NEUTROPHILS # (AUTO) 7.4 K/uL (1.8-8.9); NEUTROPHILS % (AUTO) 79.4 % (43.0-81.0); PLATELET COUNT (AUTO) 104 K/uL (150-450); RED BLOOD CELL COUNT(AUTO) 2.99 MIL/uL (4.5-6.0); RED CELL DISTRIBUTION WIDTH 14.6 % (11.5-15.0); WHITE BLOOD COUNT (AUTO) 9.3 K/uL (4.3-11.0)
[2024-09-19 07:34] LABS: CALCIUM, SERUM 7.9 mg/dL (8.5-10.1); CREATININE 2.2 mg/dL (0.6-1.3); POTASSIUM 3.5 mmol/L (3.5-5.1)
[2024-09-19 08:00] VITALS: BP 109/62; TEMP 99.3; O2SAT 92
[2024-09-19 14:48] LABS: HIV-1 p24 ANTIGEN NON REACTIVE (NONREACTIVE); HIV-1/2 ANTIBODY NON REACTIVE (NONREACTIVE)
[2024-09-19 16:00] VITALS: BP 106/73; TEMP 98.8; O2SAT 92
[2024-09-19] MEDS: IV D5/ 0.9% NACL 1,000 ML IV PRN (17:03)
[2024-09-20] VITALS: BP 117/58; TEMP 99; O2SAT 91
[2024-09-20 06:05] LABS: BASOPHILS % (AUTO) 0.5 % (0.0-2.0); EOSINOPHILS # (AUTO) 0.4 K/uL (0.0-0.7); EOSINOPHILS % (AUTO) 4.1 % (0.0-6.0); HEMATOCRIT 27 % (39-51); HEMOGLOBIN 8.9 g/dL (13.5-17.5); LYMPHOCYTES # (AUTO) 0.8 K/uL (0.8-4.8); LYMPHOCYTES % (AUTO) 8.3 % (20.0-44.0); MEAN CORPUSCULAR HEMOGLOBIN 28 PG (26.0-33.0); MEAN CORPUSCULAR HGB CONC 33 g/dl (31.0-36.0); MEAN CORPUSCULAR VOLUME 85 fL (80-96); MONOCYTES # (AUTO) 1.1 K/uL (0.1-1.30); MONOCYTES % (AUTO) 11.4 % (2.0-12.0); NEUTROPHILS # (AUTO) 7.2 K/uL (1.8-8.9); NEUTROPHILS % (AUTO) 75.7 % (43.0-81.0); PLATELET COUNT (AUTO) 122 K/uL (150-450); RED BLOOD CELL COUNT(AUTO) 3.18 MIL/uL (4.5-6.0); RED CELL DISTRIBUTION WIDTH 14.6 % (11.5-15.0); WHITE BLOOD COUNT (AUTO) 9.5 K/uL (4.3-11.0)
[2024-09-20 06:17] LABS: CALCIUM, SERUM 7.9 mg/dL (8.5-10.1); CREATININE 1.6 mg/dL (0.6-1.3); POTASSIUM 3.4 mmol/L (3.5-5.1)
[2024-09-20 08:50] VITALS: BP 109/55; TEMP 97.9; O2SAT 92
[2024-09-20] MEDS: POTASSIUM CHLORIDE 10 MEQ TABLET.SA PO ONE (09:50)
[2024-09-20 16:00] VITALS: BP 109/66; TEMP 97.9; O2SAT 92
[2024-09-20 20:00] VITALS: BP 128/66; TEMP 98.6; O2SAT 95
[2024-09-20] MEDS: APIXABAN 5 MG TABLET PO SCH (21:35)
[2024-09-21 04:00] VITALS: BP 137/79; TEMP 97.7; O2SAT 96
[2024-09-21 06:45] LABS: BASOPHILS # (AUTO) 0.1 K/uL (0.0-0.2); BASOPHILS % (AUTO) 0.5 % (0.0-2.0); EOSINOPHILS # (AUTO) 0.6 K/uL (0.0-0.7); EOSINOPHILS % (AUTO) 5.8 % (0.0-6.0); HEMATOCRIT 27 % (39-51); HEMOGLOBIN 9.1 g/dL (13.5-17.5); LYMPHOCYTES # (AUTO) 0.8 K/uL (0.8-4.8); LYMPHOCYTES % (AUTO) 8.3 % (20.0-44.0); MEAN CORPUSCULAR HEMOGLOBIN 28 PG (26.0-33.0); MEAN CORPUSCULAR HGB CONC 33 g/dl (31.0-36.0); MEAN CORPUSCULAR VOLUME 84 fL (80-96); MONOCYTES % (AUTO) 9.9 % (2.0-12.0); NEUTROPHILS # (AUTO) 7.4 K/uL (1.8-8.9); NEUTROPHILS % (AUTO) 75.5 % (43.0-81.0); PLATELET COUNT (AUTO) 166 K/uL (150-450); RED BLOOD CELL COUNT(AUTO) 3.24 MIL/uL (4.5-6.0); RED CELL DISTRIBUTION WIDTH 14.9 % (11.5-15.0); WHITE BLOOD COUNT (AUTO) 9.8 K/uL (4.3-11.0)
[2024-09-21 07:03] LABS: CALCIUM, SERUM 8.1 mg/dL (8.5-10.1); CREATININE 1.6 mg/dL (0.6-1.3); POTASSIUM 3.9 mmol/L (3.5-5.1)
[2024-09-21 08:00] VITALS: BP 119/61; TEMP 98.6; O2SAT 97
[2024-09-21 16:00] VITALS: BP 124/64; TEMP 98.2; O2SAT 94
[2024-09-21] MEDS: NEOMY SULF/BACITRAC ZN/POLY 15 GM TUBE TP SCH (17:29)
[2024-09-21 20:00] VITALS: BP 129/61; TEMP 98.1; O2SAT 96
[2024-09-22 04:00] VITALS: BP 131/62; TEMP 97.5; O2SAT 98
[2024-09-22 05:53] LABS: BASOPHILS % (AUTO) 0.4 % (0.0-2.0); EOSINOPHILS # (AUTO) 0.8 K/uL (0.0-0.7); EOSINOPHILS % (AUTO) 7.7 % (0.0-6.0); HEMATOCRIT 28 % (39-51); HEMOGLOBIN 9.5 g/dL (13.5-17.5); LYMPHOCYTES # (AUTO) 1.3 K/uL (0.8-4.8); LYMPHOCYTES % (AUTO) 11.6 % (20.0-44.0); MEAN CORPUSCULAR HEMOGLOBIN 28 PG (26.0-33.0); MEAN CORPUSCULAR HGB CONC 34 g/dl (31.0-36.0); MEAN CORPUSCULAR VOLUME 84 fL (80-96); MONOCYTES # (AUTO) 1.2 K/uL (0.1-1.30); MONOCYTES % (AUTO) 10.9 % (2.0-12.0); NEUTROPHILS # (AUTO) 7.6 K/uL (1.8-8.9); NEUTROPHILS % (AUTO) 69.4 % (43.0-81.0); PLATELET COUNT (AUTO) 207 K/uL (150-450); RED BLOOD CELL COUNT(AUTO) 3.36 MIL/uL (4.5-6.0); RED CELL DISTRIBUTION WIDTH 14.6 % (11.5-15.0); WHITE BLOOD COUNT (AUTO) 10.9 K/uL (4.3-11.0)
[2024-09-22 06:06] LABS: CALCIUM, SERUM 8.2 mg/dL (8.5-10.1); CREATININE 1.4 mg/dL (0.6-1.3); POTASSIUM 3.3 mmol/L (3.5-5.1)
[2024-09-22 08:00] VITALS: BP 119/64; TEMP 98.8; O2SAT 97
[2024-09-22] MEDS: POTASSIUM CHLORIDE 20 MEQ TAB.PRT.SR PO ONE (13:08)
[2024-09-22 16:00] VITALS: BP 127/65; TEMP 99.9; O2SAT 97
[2024-09-22 20:00] VITALS: BP 136/61; TEMP 97.9; O2SAT 97
[2024-09-23 04:00] VITALS: BP 131/75; TEMP 97.9; O2SAT 98
[2024-09-23 07:16] LABS: CALCIUM, SERUM 8.2 mg/dL (8.5-10.1); CREATININE 1.4 mg/dL (0.6-1.3); POTASSIUM 3.6 mmol/L (3.5-5.1)
[2024-09-23 07:44] LABS: BASOPHILS # (AUTO) 0.1 K/uL (0.0-0.2); BASOPHILS % (AUTO) 0.5 % (0.0-2.0); EOSINOPHILS % (AUTO) 8.4 % (0.0-6.0); HEMATOCRIT 29 % (39-51); HEMOGLOBIN 9.7 g/dL (13.5-17.5); LYMPHOCYTES # (AUTO) 1.3 K/uL (0.8-4.8); LYMPHOCYTES % (AUTO) 10.8 % (20.0-44.0); MEAN CORPUSCULAR HEMOGLOBIN 28 PG (26.0-33.0); MEAN CORPUSCULAR HGB CONC 33 g/dl (31.0-36.0); MEAN CORPUSCULAR VOLUME 84 fL (80-96); MONOCYTES # (AUTO) 1.4 K/uL (0.1-1.30); MONOCYTES % (AUTO) 11.4 % (2.0-12.0); NEUTROPHILS # (AUTO) 8.2 K/uL (1.8-8.9); NEUTROPHILS % (AUTO) 68.9 % (43.0-81.0); PLATELET COUNT (AUTO) 280 K/uL (150-450); RED CELL DISTRIBUTION WIDTH 14.9 % (11.5-15.0); WHITE BLOOD COUNT (AUTO) 11.9 K/uL (4.3-11.0)
[2024-09-23 08:00] VITALS: BP 124/59; TEMP 98.4
[2024-09-23] MEDS: CEFAZOLIN 2 GM in IV D5W 100 ML IV SCH (08:27)
[2024-09-23 12:04] LABS: LYMPHOCYTES % (MANUAL) 5 % (16-48); NEUTROPHILS % (MANUAL) 82 (42-76)
[2024-09-23 12:05] LABS: EOSINOPHILS % (MANUAL) 4 % (0-4); MONOCYTES % (MANUAL) 9 % (0-11.0); PLATELET ESTIMATE ADEQUATE
[2024-09-23 12:06] LABS: ANISOCYTOSIS 1+
[2024-09-23 12:07] LABS: HYPOCHROMASIA FEW
[2024-09-23] MEDS: MINERAL OIL 133 ML (PYXIS) 1 EA ENEMA RC ONE (13:30)
[2024-09-23 16:00] VITALS: BP 121/60; TEMP 98.4; O2SAT 93
[2024-09-23] MEDS: POLYETHYLENE GLYCOL 3350 17 GM POWD.PACK PO SCH (16:33)
[2024-09-23 20:00] VITALS: BP 127/56; TEMP 99; O2SAT 96
[2024-09-23] MEDS: SENNOSIDES 8.6 MG TABLET PO SCH (21:20)
[2024-09-24 04:34] VITALS: BP 121/54; TEMP 97.7; O2SAT 98
[2024-09-24 06:59] LABS: CALCIUM, SERUM 8.4 mg/dL (8.5-10.1); CREATININE 1.5 mg/dL (0.6-1.3); POTASSIUM 3.7 mmol/L (3.5-5.1)
[2024-09-24 08:00] VITALS: BP 111/54; TEMP 98.4; O2SAT 95
[2024-09-24] MEDS: IVERMECTIN 3 MG TABLET PO ONE (13:00)
[2024-09-24 16:00] VITALS: BP 117/58; TEMP 99.3; O2SAT 96
[2024-09-24 20:00] VITALS: BP 114/50; TEMP 98.4; O2SAT 98
[2024-09-24] MEDS: PERMETHRIN 5% CRM 60 GM TUBE TP ONE (21:04)
[2024-09-25 04:00] VITALS: BP 135/61; TEMP 98.4; O2SAT 96
[2024-09-25 08:00] VITALS: BP 130/56; TEMP 98.6; O2SAT 96
[2024-09-25 08:53] LABS: BASOPHILS % (AUTO) 0.3 % (0.0-2.0); EOSINOPHILS # (AUTO) 0.7 K/uL (0.0-0.7); EOSINOPHILS % (AUTO) 6.6 % (0.0-6.0); HEMATOCRIT 30 % (39-51); HEMOGLOBIN 9.9 g/dL (13.5-17.5); LYMPHOCYTES % (AUTO) 9.5 % (20.0-44.0); MEAN CORPUSCULAR HEMOGLOBIN 28 PG (26.0-33.0); MEAN CORPUSCULAR HGB CONC 33 g/dl (31.0-36.0); MEAN CORPUSCULAR VOLUME 85 fL (80-96); MONOCYTES % (AUTO) 9.3 % (2.0-12.0); NEUTROPHILS # (AUTO) 8.2 K/uL (1.8-8.9); NEUTROPHILS % (AUTO) 74.3 % (43.0-81.0); PLATELET COUNT (AUTO) 334 K/uL (150-450); RED BLOOD CELL COUNT(AUTO) 3.55 MIL/uL (4.5-6.0)
[2024-09-25 09:05] LABS: CALCIUM, SERUM 8.5 mg/dL (8.5-10.1); CREATININE 1.5 mg/dL (0.6-1.3); MAGNESIUM 2.2 mg/dL (1.8-2.4); PHOSPHORUS 3.5 mg/dL (2.5-4.9); POTASSIUM 3.8 mmol/L (3.5-5.1)
[2024-09-25] MEDS ORDERED: APIX5TAB PO (13:16)
[2024-09-25] MEDS ORDERED: EMPA25TA PO (13:16)
[2024-09-25] MEDS ORDERED: CEFA2PLA9 IV (13:16)
[2024-09-25 15:00] VITALS: BP 115/77
== END 2024-09-25 18:03 | DRG 682 ==
LOC: ER 13:21 → TELE1 16:23 → ICU 19:26 → TELE1 09-14 12:11 → MEDSG1 09-17 09:49
PROVIDERS: ADMIT Internal Medicine; ATTEND Student in an Organized Health Care Education/Training Program
PROC: 05HM33Z Insertion of Infusion Device into Right Internal Jugular Vein, Percutaneous Approach (ICD-10-PCS; principal; 2024-09-13)
PROC: B543ZZA Ultrasonography of Right Jugular Veins, Guidance (ICD-10-PCS; 2024-09-13)
PROC: 5A1D70Z Performance of Urinary Filtration, Intermittent, Less than 6 Hours Per Day (ICD-10-PCS; 2024-09-13)
PROC: 05HB33Z Insertion of Infusion Device into Right Basilic Vein, Percutaneous Approach (ICD-10-PCS; 2024-09-14)
DX: N17.9 Acute kidney failure, unspecified (principal); A41.01 Sepsis due to Methicillin susceptible Staphylococcus aureus; J15.69 Pneumonia due to other Gram-negative bacteria; E87.1 Hypo-osmolality and hyponatremia; I82.C11 Acute embolism and thrombosis of right internal jugular vein; E87.20 Acidosis, unspecified; K86.1 Other chronic pancreatitis; N39.0 Urinary tract infection, site not specified; E87.5 Hyperkalemia; D64.9 Anemia, unspecified; E11.65 Type 2 diabetes mellitus with hyperglycemia; I44.0 Atrioventricular block, first degree; E86.9 Volume depletion, unspecified; G40.909 Epilepsy, unspecified, not intractable, without status epilepticus; Z20.822 Contact with and (suspected) exposure to COVID-19; I50.9 Heart failure, unspecified; I11.0 Hypertensive heart disease with heart failure; I25.10 Atherosclerotic heart disease of native coronary artery without angina pectoris; Z78.9 Other specified health status; Z96.641 Presence of right artificial hip joint; Z79.4 Long term (current) use of insulin; E78.5 Hyperlipidemia, unspecified; E04.2 Nontoxic multinodular goiter; M89.8X9 Other specified disorders of bone, unspecified site; K74.60 Unspecified cirrhosis of liver; Y95 Nosocomial condition; Z79.899 Other long term (current) drug therapy; R74.8 Abnormal levels of other serum enzymes; M10.9 Gout, unspecified; R33.9 Retention of urine, unspecified; R59.0 Localized enlarged lymph nodes; R31.9 Hematuria, unspecified
CPT/HCPCS: 36415; 36600; 71045-TC; 71250-TC; 76536-TC; 76770-TC; 80048-TC; 80053-TC; 80076-TC; 80202-TC; 81001; 82550-TC; 82570-TC; 82803-TC; 82962-TC; 83690-TC; 83735-TC; 83970; 84100-TC; 84155; 84165; 84300-TC; 85025-TC; 85027-TC; 85610-TC; 86704; 86705; 86706; 86803; 86850-TC; 87040-TC; 87081-TC; 87340; 87806; 90935-TC; 93307-TC; 93971-TC; 97110-TC; 97116-TC; 97530-TC; A4217; A4223; G0378; J0690; J0692; J1644; J1815; J1940; J2270; J2543; J3370; J3371; J3490; J7030; J7042; J7050; J7060

== ENCOUNTER 2024-11-07 02:20 | Inpatient (IN) | payer MEDICARE, OTHER ==
[~2024-11-07] VITALS: Ht 167.6 cm; Wt 85.7 kg
[~2024-11-07 02:20] MED LIST changes: +ACET-2812 PO; -ACET325C7 PO; +AMLO-212 PO; -AMYL1CAP56 PO; +APIX5TAB PO; +ASCO500T10 PO; +ASPI-1169 PO; +ATOR40TA PO; +BISA5TAB10 PO; +CEFA2PLA9 IV; +CHOL500062 PO; +CYAN-51 PO; +EMPA25TA PO; +ESCI10TA; +FERR325T24 PO; +FOLI0.8T3 PO; +FURO40TA5 PO; +HYDR30CR77 RC; +INSU100I26 SQ; -LACT1CAP71 PO; +LIPA1CAP9 PO; +LOSA100T31 PO; +MAGN400T52 PO; +METF-867 PO; +METF-881 PO; +OMEG1CAP55 PO; +POTA-88 PO; +QUET100T PO; +SPIR50TA5 PO; +THIA100T68 PO
[2024-11-07] MEDS ORDERED: LEVETIRACETAM (500MG) 500 MG/5 ML VIAL IV ONE (02:57)
[2024-11-07] MEDS: IV NS 0.9% 500 ML BAG IV ONE (03:01)
[2024-11-07] MEDS: LEVETIRACETAM (500MG) 500 MG in IV NS 0.9% 100 ML IV SCH (03:02)
[2024-11-07 03:14] LABS: BASOPHILS # (AUTO) 0.1 K/uL (0.0-0.2); BASOPHILS % (AUTO) 0.3 % (0.0-2.0); EOSINOPHILS # (AUTO) 0.2 K/uL (0.0-0.7); EOSINOPHILS % (AUTO) 1.1 % (0.0-6.0); HEMATOCRIT 37 % (39-51); HEMOGLOBIN 11.6 g/dL (13.5-17.5); LYMPHOCYTES # (AUTO) 1.1 K/uL (0.8-4.8); LYMPHOCYTES % (AUTO) 5.4 % (20.0-44.0); MEAN CORPUSCULAR HEMOGLOBIN 28 PG (26.0-33.0); MEAN CORPUSCULAR HGB CONC 31 g/dl (31.0-36.0); MEAN CORPUSCULAR VOLUME 88 fL (80-96); MONOCYTES # (AUTO) 0.9 K/uL (0.1-1.30); MONOCYTES % (AUTO) 4.1 % (2.0-12.0); NEUTROPHILS # (AUTO) 18.7 K/uL (1.8-8.9); NEUTROPHILS % (AUTO) 89.1 % (43.0-81.0); PLATELET COUNT (AUTO) 204 K/uL (150-450); RED CELL DISTRIBUTION WIDTH 16.3 % (11.5-15.0)
[2024-11-07 03:22] LABS: CARBON DIOXIDE 18 mmol/L (21-32); CHLORIDE 101 mmol/L (98-107); CREATININE 3.3 mg/dL (0.6-1.3); GLUCOSE 216 mg/dL (74-106); SODIUM SERUM 132 mmol/L (136-145); UREA NITROGEN, BLOOD 57 mg/dL (7-18)
[2024-11-07 03:25] LABS: POTASSIUM 6.4 mmol/L (3.5-5.1)
[2024-11-07 03:28] LABS: ALANINE AMINOTRANSFERASE 20 U/L (12-78); ALKALINE PHOSPHATASE 98 U/L (46-116); ASPARTATE AMINOTRANSFERASE 18 U/L (15-37); BILIRUBIN,DIRECT 0.1 mg/dL (0.0-0.2); BILIRUBIN,TOTAL 0.2 mg/dL (0.2-1.0); TOTAL PROTEIN, SERUM 7.6 g/dL (6.4-8.2)
[2024-11-07 03:33] LABS: INR 1.07 (0.91-1.10); PARTIAL THROMBOPLASTIN TIME 38.4 SEC (24.3-34.3); PROTHROMBIN TIME 11.3 SECS (9.2-11.1)
[2024-11-07] MEDS ORDERED: SODIUM POLYSTYRENE SULFONATE 15 G/60 ML BOTTLE ONE (03:40)
[2024-11-07] MEDS ORDERED: SODIUM BICARBONATE SYR 50 MEQ/50 ML DISP.SYRIN ONE (03:40)
[2024-11-07] MEDS ORDERED: INSULIN REGULAR, HUMAN 100 UNIT/ML 10 ML VIAL ONE (03:40)
[2024-11-07] MEDS ORDERED: FUROSEMIDE 20 MG/2 ML VIAL ONE (03:40)
[2024-11-07] MEDS ORDERED: CALCIUM CHLORIDE 1,000 MG/10 ML DISP.SYRIN ONE (03:42)
[2024-11-07] MEDS ORDERED: DEXTROSE 50%-WATER 50 ML DISP.SYRIN ONE (03:42)
[2024-11-07 03:45] LABS: CALCIUM, SERUM 8.8 mg/dL (8.5-10.1)
[2024-11-07] MEDS: INSULIN REGULAR, HUMAN 100 UNIT/ML 10 ML VIAL IV ONE (04:00)
[2024-11-07] MEDS: DEXTROSE 50%-WATER 50 ML DISP.SYRIN IV ONE (04:01)
[2024-11-07] MEDS: SODIUM POLYSTYRENE SULFONATE 15 G/60 ML BOTTLE PO ONE (04:01)
[2024-11-07] MEDS: IV NS 0.9% 1,000 ML BAG IV ONE (04:01)
[2024-11-07] MEDS: SODIUM BICARBONATE SYR 50 MEQ/50 ML DISP.SYRIN IV ONE (04:01)
[2024-11-07] MEDS: FUROSEMIDE 40 MG/4 ML VIAL IV ONE (04:01)
[2024-11-07] MEDS: CALCIUM CHLORIDE 1,000 MG/10 ML DISP.SYRIN IV ONE (04:01)
[2024-11-07] MEDS ORDERED: MAGNESIUM HYDROXIDE 30 ML UDC PO PRN (04:30)
[2024-11-07] MEDS ORDERED: LEVETIRACETAM (500MG) 1,000 MG in IV NS 0.9% 90 ML IV SCH (04:30)
[2024-11-07] MEDS ORDERED: ONDANSETRON HCL/PF 4 MG/2 ML VIAL IVP PRN (04:30)
[2024-11-07] MEDS ORDERED: HYDROCODONE/APAP 5/325MG TABLET PO PRN (04:30)
[2024-11-07] MEDS ORDERED: TEMAZEPAM 15 MG CAPSULE PO PRN (04:30)
[2024-11-07] MEDS ORDERED: Z GUARD REMEDY 4 OZ OINT TP PRN (04:30)
[2024-11-07] MEDS ORDERED: MAG HYDROX/AL HYDROX/SIMETH 30 ML UDC PO PRN (04:30)
[2024-11-07 04:32] LABS: APPEARANCE,URINE CLEAR (CLEAR); BILIRUBIN,URINE NEGATIVE (NEGATIVE); BLOOD, URINE NEGATIVE Ery/uL (NEGATIVE); COLOR,URINE YELLOW (YELLOW); KETONES,URINE NEGATIVE (NEGATIVE); LEUKOCYTE ESTERASE ,URINE NEGATIVE (NEGATIVE); NITRITE, URINE NEGATIVE (NEGATIVE); PROTEIN,URINE NEGATIVE (NEGATIVE); UGLUCOSE 3+ mg/dL (NEGATIVE); UROBILINOGEN,URINE 0.2 EU/dL (0.2)
[2024-11-07 05:00] VITALS: BP 138/66; TEMP 97.9; O2SAT 98
[2024-11-07] MEDS: ACETAMINOPHEN 325 MG TABLET PO PRN (06:02)
[2024-11-07 07:30] VITALS: BP 100/55; TEMP 98.2; O2SAT 98
[2024-11-07] MEDS: PANTOPRAZOLE 40 MG TABLET.DR PO SCH ×2 (07:36→16:38)
[2024-11-07] MEDS ORDERED: MAGN400O21 PO (07:52)
[2024-11-07] MEDS ORDERED: APIX5TAB PO (07:52)
[2024-11-07] MEDS: IV NS 0.9% 100 ML IV SCH (08:31)
[2024-11-07 08:51] LABS: CALCIUM, SERUM 9.3 mg/dL (8.5-10.1); POTASSIUM 5.6 mmol/L (3.5-5.1)
[2024-11-07] MEDS: SODIUM ZIRCONIUM CYCLOSILICATE 10 GM POWD.PACK PO SCH (09:39)
[2024-11-07] MEDS: IV NS 0.9% 1,000 ML IV SCH (09:40)
[2024-11-07 12:32] LABS: CALCIUM, SERUM 8.9 mg/dL (8.5-10.1); CREATININE 2.8 mg/dL (0.6-1.3); POTASSIUM 5.4 mmol/L (3.5-5.1)
[2024-11-07 14:14] LABS: CREATININE, URINE 14.6 MG/DL (30.0-125.0)
[2024-11-07 16:06] VITALS: BP 111/58; TEMP 98.1; O2SAT 99
[2024-11-07] MEDS: CARVEDILOL 3.125 MG TABLET PO SCH (16:11)
[2024-11-07 17:53] LABS: CALCIUM, SERUM 8.9 mg/dL (8.5-10.1); CREATININE 2.7 mg/dL (0.6-1.3); POTASSIUM 4.5 mmol/L (3.5-5.1)
[2024-11-07] MEDS: LEVETIRACETAM (500MG) 1,000 MG in IV NS 0.9% 90 ML IV SCH (20:55)
[2024-11-07 21:03] VITALS: BP 129/64; TEMP 99.1; O2SAT 99
[2024-11-07] MEDS: ATORVASTATIN 40 MG TABLET PO SCH (21:08)
[2024-11-08] VITALS: BP_SYST 126; BP_SYST 127; BP_SYST 129; BP_DIAS 71; BP_DIAS 72; BP_DIAS 75; TEMP 97.5; O2SAT 97
[2024-11-08 04:00] VITALS: BP_SYST 125; BP_SYST 126; BP_SYST 129; BP_DIAS 68; BP_DIAS 71; BP_DIAS 74; TEMP 98.1; O2SAT 99
[2024-11-08 05:00] VITALS: BP 126/71; TEMP 98.1; O2SAT 99
[2024-11-08 07:00] VITALS: BP 133/72; TEMP 98.2; O2SAT 98
[2024-11-08 07:55] LABS: BASOPHILS % (AUTO) 0.6 % (0.0-2.0); EOSINOPHILS # (AUTO) 0.3 K/uL (0.0-0.7); EOSINOPHILS % (AUTO) 4.6 % (0.0-6.0); HEMATOCRIT 33 % (39-51); HEMOGLOBIN 10.8 g/dL (13.5-17.5); LYMPHOCYTES # (AUTO) 1.5 K/uL (0.8-4.8); LYMPHOCYTES % (AUTO) 23.2 % (20.0-44.0); MEAN CORPUSCULAR HEMOGLOBIN 28 PG (26.0-33.0); MEAN CORPUSCULAR HGB CONC 33 g/dl (31.0-36.0); MEAN CORPUSCULAR VOLUME 85 fL (80-96); MONOCYTES # (AUTO) 0.6 K/uL (0.1-1.30); MONOCYTES % (AUTO) 8.9 % (2.0-12.0); NEUTROPHILS % (AUTO) 62.7 % (43.0-81.0); PLATELET COUNT (AUTO) 201 K/uL (150-450); RED BLOOD CELL COUNT(AUTO) 3.87 MIL/uL (4.5-6.0); WHITE BLOOD COUNT (AUTO) 6.3 K/uL (4.3-11.0)
[2024-11-08 08:15] LABS: ALBUMIN 3.3 g/dL (3.4-5.0); BILIRUBIN,TOTAL 0.2 mg/dL (0.2-1.0); CALCIUM, SERUM 8.2 mg/dL (8.5-10.1); CREATININE 2.2 mg/dL (0.6-1.3); PHOSPHORUS 4.6 mg/dL (2.5-4.9); POTASSIUM 3.9 mmol/L (3.5-5.1); TOTAL PROTEIN, SERUM 6.4 g/dL (6.4-8.2)
[2024-11-08] MEDS: EMPAGLIFLOZIN 25 MG TABLET PO SCH (08:16)
[2024-11-08] MEDS ORDERED: DEXTROSE 50%-WATER 50 ML DISP.SYRIN IV PRN (13:30)
[2024-11-08 16:00] VITALS: BP_SYST 126; BP_SYST 134; BP_SYST 145; BP_SYST 148; BP_DIAS 68; BP_DIAS 69; BP_DIAS 74; BP_DIAS 78; TEMP 98.2; O2SAT 100
[2024-11-08] MEDS: BLOOD SUGAR DIAGNOSTIC 1 EACH STRIP VI SCH (16:41)
[2024-11-08] MEDS: INSULIN REGULAR, HUMAN 100 UNIT/ML 3 ML VIAL SQ PRN (16:45)
[2024-11-08 20:00] VITALS: BP 144/63; TEMP 98.2; O2SAT 100
[2024-11-08] MEDS: *INSULIN REGULAR(HUMULIN R)HUM 100 UNIT/ML VIAL SQ PRN (22:44)
[2024-11-09 07:42] LABS: BASOPHILS % (AUTO) 0.7 % (0.0-2.0); EOSINOPHILS # (AUTO) 0.3 K/uL (0.0-0.7); EOSINOPHILS % (AUTO) 5.9 % (0.0-6.0); HEMATOCRIT 33 % (39-51); HEMOGLOBIN 10.8 g/dL (13.5-17.5); LYMPHOCYTES # (AUTO) 1.5 K/uL (0.8-4.8); LYMPHOCYTES % (AUTO) 28.9 % (20.0-44.0); MEAN CORPUSCULAR HEMOGLOBIN 28 PG (26.0-33.0); MEAN CORPUSCULAR HGB CONC 33 g/dl (31.0-36.0); MEAN CORPUSCULAR VOLUME 84 fL (80-96); MONOCYTES # (AUTO) 0.5 K/uL (0.1-1.30); NEUTROPHILS # (AUTO) 2.8 K/uL (1.8-8.9); NEUTROPHILS % (AUTO) 54.5 % (43.0-81.0); PLATELET COUNT (AUTO) 195 K/uL (150-450); RED BLOOD CELL COUNT(AUTO) 3.85 MIL/uL (4.5-6.0); WHITE BLOOD COUNT (AUTO) 5.2 K/uL (4.3-11.0)
[2024-11-09 07:56] LABS: CALCIUM, SERUM 8.7 mg/dL (8.5-10.1); CREATININE 1.6 mg/dL (0.6-1.3); POTASSIUM 3.9 mmol/L (3.5-5.1)
[2024-11-09 09:09] LABS: PTH, INTACT 10 pg/mL (15-65)
[2024-11-09] MEDS ORDERED: LEVE250T2 PO (13:04)
[2024-11-09 14:44] LABS: MAGNESIUM 2.1 mg/dL (1.8-2.4); PHOSPHORUS 3.5 mg/dL (2.5-4.9)
[2024-11-09 16:00] VITALS: BP 152/78; TEMP 98.4; O2SAT 97
== END 2024-11-09 18:25 | DRG 53 ==
LOC: ER 02:27 → TELE 04:25 → MED 11-08 14:57
PROVIDERS: ADMIT Student in an Organized Health Care Education/Training Program; ATTEND Student in an Organized Health Care Education/Training Program
DX: G40.909 Epilepsy, unspecified, not intractable, without status epilepticus (principal); G93.49 Other encephalopathy; E11.649 Type 2 diabetes mellitus with hypoglycemia without coma; E87.20 Acidosis, unspecified; I13.0 Hypertensive heart and chronic kidney disease with heart failure and stage 1 through stage 4 chronic kidney disease, or unspecified chronic kidney disease; R65.10 Systemic inflammatory response syndrome (SIRS) of non-infectious origin without acute organ dysfunction; N17.9 Acute kidney failure, unspecified; I82.C11 Acute embolism and thrombosis of right internal jugular vein; I50.9 Heart failure, unspecified; E87.1 Hypo-osmolality and hyponatremia; E11.22 Type 2 diabetes mellitus with diabetic chronic kidney disease; N13.30 Unspecified hydronephrosis; D64.9 Anemia, unspecified; D72.829 Elevated white blood cell count, unspecified; E87.5 Hyperkalemia; I25.10 Atherosclerotic heart disease of native coronary artery without angina pectoris; E78.5 Hyperlipidemia, unspecified; K21.9 Gastro-esophageal reflux disease without esophagitis; N18.9 Chronic kidney disease, unspecified; Z87.19 Personal history of other diseases of the digestive system; Z79.899 Other long term (current) drug therapy; Z79.4 Long term (current) use of insulin; Z79.84 Long term (current) use of oral hypoglycemic drugs; Z79.82 Long term (current) use of aspirin; K74.60 Unspecified cirrhosis of liver; K86.1 Other chronic pancreatitis; M10.9 Gout, unspecified; M89.8X9 Other specified disorders of bone, unspecified site; E86.0 Dehydration; I44.0 Atrioventricular block, first degree; E04.1 Nontoxic single thyroid nodule; E86.9 Volume depletion, unspecified; Z79.01 Long term (current) use of anticoagulants; Z98.890 Other specified postprocedural states
CPT/HCPCS: 36415; 70450-TC; 70486-TC; 71045-TC; 72125-TC; 76770-TC; 80048-TC; 80053-TC; 80076-TC; 82550-TC; 82570-TC; 82962-TC; 83735-TC; 83970; 84100-TC; 84155; 84165; 84300-TC; 84484-TC; 85025-TC; 85730-TC; 87081-TC; A4223; G0378; J1815; J1938; J1953; J3490; J7030; J7040